=== PATIENT | female | born 1990 | race African-American/Black ===

== ENCOUNTER 2020-08-02 10:51 | Outpatient (CLI) | payer BC, MEDICAID, SELFPAY ==
--- NOTE | ~2020-08-02 | MMUS_ITS ---
EXAMINATION: US breast LT limited, MM diagnostic quan LT w luis enrique HISTORY: Palpable left breast mass. Pain at site of previous surgery. TECHNIQUE: Additional 3-D tomosynthesis images of the left breast were performed and synthetic 2-D im ages were generated. CAD analysis was submitted and interpreted. High resolution Limited left breast/ axillary ultrasound was performed. COMPARISON: None BREAST PARENCHYMAL COMPOSITION: Breast composed of scattered areas of fibroglandular density. FINDINGS: MAMMOGRAPHIC FINDINGS: There are no suspicious masses, calcifications or architectural distortion in the left breast. There are enlarged left axillary lymph nodes with effacement of normal fatty hilum ULTRASOUND: Limited left breast/axillary ultrasound: At 4:00, 17 cm from the nipple, there is a complex area of p redominantly hypoechoic soft tissue with heterogeneous internal echotexture. There is enhanced throug h transmission. In the left axilla there are multiple enlarged lymph nodes with effacement of the nor mal fatty hilum. The largest abnormal-appearing lymph node measures 2.4 cm. IMPRESSION: 1. Complex hypoechoic soft tissue of the left breast at 4:00, 17 cm from the nipple. This is most lik arin infectious/inflammatory given the history of recent surgery. Multiple enlarged abnormal-appearing left axillary lymph nodes are present as well. 2. Ultrasound-guided aspiration/biopsy recommended. Alternatively, if the patient's symptoms are cons istent with infection, consider conservative therapy with antibiotics with follow-up ultrasound in 4- 6 weeks to assess for improvement. BI-RADS category 4, suspicious findings. Reviewed, dictated and finalized at location A. GER DIGITAL IMPRESSION: 1. Complex hypoechoic soft tissue of the left breast at 4:00, 17 cm from the ni pple. This is most likely infectious/inflammatory given the history of recent s urgery. Multiple enlarged abnormal-appearing left axillary lymph nodes are pres ent as well. 2. Ultrasound-guided aspiration/biopsy recommended. Alternatively, if the patie nt's symptoms are consistent with infection, consider conservative therapy with antibiotics with follow-up ultrasound in 4-6 weeks to assess for improvement. BI-RADS category 4, suspicious findings.
== END 2020-08-02 10:52 | disposition home or self-care (01) ==
LOC: ANHIMG 11:13
PROVIDERS: PCP Emergency Medicine; Visit Provider Advanced Practice Midwife
DX: N64.4 Mastodynia (principal); N63.20 Unspecified lump in the left breast, unspecified quadrant; R92.8 Other abnormal and inconclusive findings on diagnostic imaging of breast
CPT/HCPCS: 76642; 77061; 77065; G0279

== ENCOUNTER 2021-02-01 13:46 | Emergency (ER) | payer BC, MEDICAID, SELFPAY ==
--- NOTE | ~2021-02-01 | XR_ITS ---
EXAMINATION: XR chest 1V portable EXAM DATE: 02/01/2021 16:01 INDICATION: Cough. TECHNIQUE: Frontal and lateral projections of the chest obtained and reviewed. Comparison is made to prior examination from 06/06/2016. FINDINGS: Suspect some ill-defined bilateral airspace disease, could be acute infectious process. No pneumothorax or pleural effusion. Cardiomediastinal silhouette is normal. There are no osseous abnorm alities identified. IMPRESSION: Suspect developing bilateral acute infectious process. Reviewed, dictated and finalized at location B.
[2021-02-01 13:51] VITALS: BP 137/90; PULSE 115; RESP 16; TEMP 37.6; O2SAT 98
--- NOTE | 2021-02-01 14:41 | ED.GENADULT ---
HPI - General Adult General Chief complaint: Nausea/Vomiting/Diarrhea Stated complaint: Vomiting x4 Days Time Seen by Provider: 02/01/21 14:12 Source: RN notes reviewed History of Present Illness HPI narrative: Patient presents emergency department from home for nausea vomiting diarrhea. Patient states that nausea began approximately 1 week ago but is worse over the past 4 days she notes numerous episodes of nausea vomiting unable to keep anything down as well as diarrhea states that with that she has intermittent abdominal cramping but denies any abdominal pain at this time. She denies any fevers or chills chest pain shortness of breath cough or any other symptoms she states her mother did test positive for Covid 2 weeks ago and she is unvaccinated she states she did have a Covid test proximally 2 weeks ago that was negative states she not taking medication at home for the symptoms Related Data Allergies Allergy/AdvReac Type Severity Reaction Status Date / Time No Known Allergies Allergy Unknown Unverified 02/01/21 13:53 Review of Systems Review of Systems: Gen.: Denies fevers or chills ENT: Denies congestion Respiratory: Denies shortness of breath or cough CV: Denies chest pain or palpitations GI: See HPI denies burning, urgency, frequency or hematuria Musculoskeletal: Denies back pain or muscle pain Neuro: Denies numbness, tingling, weakness or focal weakness Skin: Denies rash Except as documented, all other systems reviewed and negative PMFSH Past Medical History Medical History (Updated 02/01/21 @ 16:50 by Wood Parker DO) Patient denies significant medical history Social History Social History (Updated 02/01/21 @ 14:42 by Wood Parker DO) Smoking status: Never smoker Exam Narrative: APPEARANCE: No acute distress, nontoxic, resting in bed EYES: EOMI HEENT: Normocephalic, atraumatic, RESPIRATORY: No respiratory distress Clear to auscultation bilaterally with no rhonchi wheezing or rales. CARDIOVASCULAR: Regular rate and rhythm without murmurs rubs or gallops. ABDOMINAL: Soft, nontender, nondistended, no rebound or guarding MUSCULOSKELETAl: Moves all extremities. No clubbing, cyanosis or edema. NEURO: Awake and alert. Following commands, speech normal, no focal deficits SKIN:: Warm, dry. No rashes lesions or abrasions PSYCHIATRIC: Normal affect/mood, Course Course Emergency Course: With patient's history of mother testing positive for Covid I did obtain a chest x-ray that shows questionable developing infiltrative process with concerns of Covid I will swab the patient and started on doxycycline Patient able to drink in ED with no emesis Repeat abdominal exam shows abdomen remains soft and nontender discussed with patient results of workup and diagnosis. Discussed need for follow-up with primary care, proper use of medication, and reasons to return to the emergency department. Patient understands and agrees to current treatment plan Vital Signs Vital signs: Vital Signs Temperature 99.7 F H 02/01/21 13:51 Pulse Rate 115 H 02/01/21 13:51 Respiratory Rate 16 02/01/21 13:51 Blood Pressure 137/90 02/01/21 13:51 Pulse Oximetry 98 02/01/21 13:51 Temperature 99.7 F H 02/01/21 13:51 Pulse Rate 99 02/01/21 15:30 Respiratory Rate 20 02/01/21 15:30 Blood Pressure 122/83 02/01/21 15:30 Pulse Oximetry 99 02/01/21 15:30 Medical Decision Making Vital Signs Vital Signs: Vital Signs Temperature 99.7 F H 02/01/21 13:51 Pulse Rate 115 H 02/01/21 13:51 Respiratory Rate 16 02/01/21 13:51 Blood Pressure 137/90 02/01/21 13:51 Pulse Oximetry 98 02/01/21 13:51 Temperature 99.7 F H 02/01/21 13:51 Pulse Rate 99 02/01/21 15:30 Respiratory Rate 20 02/01/21 15:30 Blood Pressure 122/83 02/01/21 15:30 Pulse Oximetry 99 02/01/21 15:30 Lab Data Result diagrams: 02/01/21 14:53 02/01/21 14:53 Labs: Lab Results 0
[2021-02-01] MEDS: SODIUM CHLORIDE 0.9% IV 1,000 ML 999 ML IV CONT ×2 (15:06→15:48)
[2021-02-01 15:10] LABS: Basophils Percent Auto 0.2 % (0.2-1.2); Hemoglobin 10.1 g/dL (12.0-15.0); Immature Granulocyte Absolute 0.01 K/mm3 (0.00-0.031); Immature Granulocyte Percent A 0.2 % (0-0.5); Lymphocytes Absolute Auto 1.34 K/mm3 (0.9-3.2); Lymphocytes Percent Auto 28.7 % (18.3-44.2); Mean Corpuscular HGB Conc 30.6 g/dl (32-36); Mean Corpuscular Hemoglobin 23.9 pg (26-34); Mean Platelet Volume 10.8 fl (7.4-10.4); Monocytes Absolute Auto 0.3 K/mm3 (0.1-0.6); Monocytes Percent Auto 5.4 % (2.6-8.5); Neutrophils Absolute Auto 3.1 K/mm3 (1.3-6.7); Neutrophils Percent Auto 65.5 % (45.5-73.1); Platelet Count Result 330 k/mm3 (150-375); Red Blood Count 4.23 M/mm3 (4.2-5.4); Red Cell Distribution Width 13.6 % (11.5-14.5); White Blood Count 4.7 K/mm3 (4.5-10.0)
[2021-02-01 15:21] LABS: Alanine Aminotransferase 47 U/L (4-35); Albumin Level 4.2 g/dL (3.5-5.1); Alkaline Phosphatase 84 U/L (38-126); Anion Gap 9 mmol/L (8-16); Aspartate Amino Transferase 52 U/L (14-36); Bilirubin,Total 0.3 mg/dL (0.2-1.3); Blood Urea Nitrogen 9 mg/dL (7-17); Calcium 8.7 mg/dL (8.4-10.2); Carbon Dioxide 25 mmol/L (22-30); Chloride 102 mmol/L (98-107); Estimated CRCL calculation 73 ml/min; Estimated Glomerular Filt Rate > 60; Glucose 103 mg/dL (65-110); Lipase 141 U/L (23-300); Potassium 3.9 mmol/L (3.4-5.0); Sodium 136 mmol/L (137-145)
[2021-02-01 15:26] LABS: Atypical Lymphocytes Present; Ovalocytes 1+ (NORMAL); Platelet Estimate Adequate (Adequate)
[2021-02-01 15:30] VITALS: BP 122/83; PULSE 99; RESP 20; O2SAT 99
[2021-02-01] MEDS: ONDANSETRON INJ 4 MG/2 ML VIAL IV PUSH (15:35)
[2021-02-01 15:41] LABS: Add Urine Microscopic? YES; Appearance Urine Clear (Clear); Bilirubin Urine Negative (Negative); Blood Urine Negative (Negative); Color Urine Yellow (Yellow); Glucose Urine UA Negative (Negative); Ketones Urine Trace mg/dL (Negative); Leukocyte Esterase Ur Negative LEU/UL (Negative); Mucus Urine Rare /lpf; Nitrate Urine Negative (Negative); Protein Urine 2+ mg/dL (Negative); Specific Grav Ur 1.018 (1.001-1.035); Squamous Epithelial Cell Urine Few /hpf (Few); Urobilinogen Urine Negative mg/dL (<2.0); WBC Urine 0-3 /hpf
--- NOTE | 2021-02-01 16:00 | PC.NURSE ---
PO CHALLENGE- PT TOLERATED WELL. DENIES NAUSEA AT THIS TIME.
[2021-02-01 16:49] VITALS: BP 134/98; PULSE 100; RESP 20; TEMP 37.3; O2SAT 98
[2021-02-01] MEDS: DOXYCYCLINE HYCLATE 100 MG TABLET PO (17:00)
[2021-02-02 21:00] LABS: SARS-CoV-2 RNA PCR Positive
== END 2021-02-01 17:04 | disposition home or self-care (01) ==
PROVIDERS: Emergency Provider Emergency Medicine; PCP Emergency Medicine
DX: U07.1 COVID-19 (principal); R11.2 Nausea with vomiting, unspecified; R19.7 Diarrhea, unspecified; R91.8 Other nonspecific abnormal finding of lung field
CPT/HCPCS: 36415; 71045; 80053; 81001; 81025; 83690; 85025; 96361; 96365; 96375; 99284; A9270; C9803; J0131; J2405; J7030; U0003; U0005

== ENCOUNTER 2021-02-04 14:56 | Inpatient (IN) | payer BC, MEDICAID, SELFPAY ==
[2021-02-04] VITALS (20 sets, daily range): BP systolic 106–137; BP diastolic 70–91; PULSE 96–124; RESP 20–60; TEMP 37.2–39.1; O2SAT 92–100; BMI 35.2
--- NOTE | ~2021-02-04 | CT_ITS ---
EXAMINATION: CTA chest PE protocol DATE: 02/04/2021 17:37 INDICATION: Cough. Tachypnea. TECHNIQUE: Computed tomography angiography (CTA) of the chest was performed with 100 mL Omnipaque-350 intravenous contrast timed to evaluate the pulmonary arteries. Coronal maximum intensity projection 3D-reconstructions were created by the technologist. Automated exposure control and iterative reconst ruction technique were employed. The dose-length product was 584.69 mGy-cm. COMPARISON: Chest CT 06/06/2016 FINDINGS: There are patchy airspace and groundglass opacities with air bronchograms involving all lob es. No pleural effusion. The heart size is normal. No pericardial effusion. There is no pulmonary emb olus. There is diffuse hepatic steatosis. There is thoracic dextroscoliosis. IMPRESSION: 1. No pulmonary embolus. Sensitivity is mildly decreased by motion artifact. 2. Diffuse lung disease, consistent with COVID-19 pneumonia. Reviewed, dictated and finalized at location A.
--- NOTE | ~2021-02-04 | XR_ITS ---
EXAMINATION: XR chest 2V DATE: 02/04/2021 15:27 INDICATION: Shortness of breath. TECHNIQUE: Frontal and lateral views of the chest were obtained. COMPARISON: Chest single view 02/01/2021, chest CT 06/06/2016 FINDINGS: There are airspace opacities in the mid and lower lung zones. No pleural effusion or pneumo thorax. The heart size is normal. IMPRESSION: 1. Airspace opacities in the mid and lower lung zones with worsening in the lower lung zones, consist ent with COVID-19 pneumonia. Reviewed, dictated and finalized at location A. IMPRESSION: 1. Airspace opacities in the mid and lower lung zones with worsening in the low er lung zones, consistent with COVID-19 pneumonia.
--- NOTE | ~2021-02-04 | XR_ITS ---
EXAMINATION: XR chest 1V portable DATE: 02/08/2021 06:05 INDICATION: Dyspnea. TECHNIQUE: A single frontal view of the chest was obtained. COMPARISON: Chest 2 views 02/04/2021, chest CT 02/04/2021 FINDINGS: The patient is rotated to her left. There are patchy airspace opacities throughout the lung s bilaterally. No pleural effusion or pneumothorax. The heart size is normal. IMPRESSION: 1. Worsened diffuse lung disease, consistent with COVID-19 pneumonia. Reviewed, dictated and finalized at location A.
--- NOTE | 2021-02-04 15:46 | ECG_ITS ---
Measurements Intervals Whitney Rate: 112 P: 75 NE: 129 QRS: 0 QRSD: 96 T: 94 QT: 330 QTc: 452 Interpretive Statements SINUS TACHYCARDIA EARLY PRECORDIAL R/S TRANSITION VOLTAGE CRITERIA FOR LVH BORDERLINE T WAVE ABNORMALITY- ANTEROLAT/HIGH LAT LEADS BASELINE WANDER- V1, V5 ABNORMAL ECG Electronically Signed On 02-04-2021 17:18:05 CDT by Martin Dean D.O.
--- NOTE | 2021-02-04 15:52 | ED.URI ---
HPI - URI/Sore Throat General Chief Complaint: Upper Respiratory Infection Stated Complaint: DEHYDRATION Time Seen by Provider: 02/04/21 15:27 Source: patient and RN notes reviewed Mode of arrival: ambulatory Limitations: no limitations History of Present Illness HPI Narrative: This is a 30 year old female COVID + who presents for evaluation of shortness of breath. Patient developed symptoms of covid 10 days ago and she tested positive 3 days ago. She was evaluated in ER 3 days ago and she was discharged with doxycycline for antibiotics. She reports nausea, vomiting and diarrhea starting 2 days ago. She reports shortness of breath starting 2 days ago as well. She has been unable to keep anything and she feels sick. She is sure of fever or chills. She denies abdominal pain and chest pain. She was not vaccinated for COVID. Related Data Home Medications Medication Instructions Recorded Confirmed metformin 500 mg PO BID 02/04/21 02/04/21 Allergies Allergy/AdvReac Type Severity Reaction Status Date / Time No Known Allergies Allergy Unknown Verified 02/04/21 15:34 Review of Systems Review of Systems: All systems reviewed & are unremarkable except as noted in HPI and below PMFSH Past Medical History Medical History (Updated 02/05/21 @ 00:13 by Colleen Rowe MD) Polycystic ovarian syndrome Surgical History Surgical History (Updated 02/04/21 @ 22:18 by Ifrah Ibanez PA-C) History of bilateral breast reduction surgery (~12/2020) Family History Family History Mother Hypertension Grandparent Diabetes mellitus Social History Social History (Updated 02/04/21 @ 22:19 by Ifrah Ibanez PA-C) Social History: Surrogate decision maker: Vika Kamara, mother. Code status: Full code. Smoking status: Never smoker Alcohol intake: never Substance use: never Additional living arrangements comments: The patient lives in [place]. 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 Exam Const: General: alert and ill appearing Orientation/consciousness: patient oriented x3 Eyes: EOM: EOMs intact bilaterally Resp: Effort & Inspection: no retractions, tachypneic and no use of accessory muscles Auscultation: clear to auscultation bilaterally Cardio: Rate: tachycardic Rhythm: regular rhythm Heart sounds: no murmurs GI: GI Palp: Yes Soft to palpation, No Tenderness to palpation present (GI) and No Guarding due to palpation present (GI) Auscultation: normal bowel sounds Skin: General skin exam: normal color Rashes: no rashes Neuro: General: patient oriented x3, moves all extremities and CN's II-XI intact bilaterally Extrem: General: normal to inspection and no pedal edema Psych: Mental Status: mental status grossly normal Affect: normal affect Course Consultations Consultation #1: I discussed case with Ifrah Ibanez. She saw patient in ER. She accepts patient to medical floor. Patient will place found to have low PaO2 on ABG. Date: 02/04/21 Time: 17:45 Vital Signs Vital signs: Vital Signs Temperature 99.7 F H 02/04/21 15:05 Pulse Rate 124 H 02/04/21 15:05 Respiratory Rate 24 H 02/04/21 15:05 Blood Pressure 129/81 02/04/21 15:05 Pulse Oximetry 100 02/04/21 15:05 Temperature 99.0 F 02/04/21 23:50 Pulse Rate 96 02/04/21 23:50 Respiratory Rate 20 02/04/21 23:50 Blood Pressure 116/79 02/04/21 23:50 Pulse Oximetry 99 02/04/21 23:50 MDM - URI/Sore Throat Lab Data Attestation: I reviewed the patient's lab results. Result diagrams: 02/04/21 15:52 02/04/21 15:52 Labs: Lab Results 02/04/21 02/04/21 02/04/21 Range/Units 15:52 15:52 15:52 WBC 6.9 (4.5-10.0) K/mm3 RBC 4.30 (4.2-5.4) M/mm3 Hgb 10.1 L (12.0-15.0) g/dL Hct 33.2 L (37.0-47.0) % MCV 77.2 L (80-1
[2021-02-04] MEDS: SODIUM CHLORIDE 0.9% IV 1,000 ML 999 ML IV CONT (15:57)
[2021-02-04] MEDS: ONDANSETRON INJ 4 MG/2 ML VIAL IV PUSH (15:57)
[2021-02-04 16:10] LABS: Basophils Percent Auto 0.1 % (0.2-1.2); Hematocrit 33.2 % (37.0-47.0); Hemoglobin 10.1 g/dL (12.0-15.0); Immature Granulocyte Absolute 0.03 K/mm3 (0.00-0.031); Immature Granulocyte Percent A 0.4 % (0-0.5); Lymphocytes Absolute Auto 1.35 K/mm3 (0.9-3.2); Lymphocytes Percent Auto 19.5 % (18.3-44.2); Mean Corpuscular HGB Conc 30.4 g/dl (32-36); Mean Corpuscular Hemoglobin 23.5 pg (26-34); Mean Corpuscular Volume 77.2 fl (80-100); Mean Platelet Volume 10.4 fl (7.4-10.4); Monocytes Absolute Auto 0.3 K/mm3 (0.1-0.6); Monocytes Percent Auto 3.6 % (2.6-8.5); Neutrophils Absolute Auto 5.3 K/mm3 (1.3-6.7); Neutrophils Percent Auto 76.4 % (45.5-73.1); Platelet Count Result 430 k/mm3 (150-375); Red Cell Distribution Width 14.2 % (11.5-14.5); White Blood Count 6.9 K/mm3 (4.5-10.0)
[2021-02-04 16:12] LABS: Alveolar/Arterial O2 Gradient 57.7 mmHg; Base Excess ABG -1.6 mEq/l (+/-2.0); Carboxyhemoglobin 0.2 % THb (0-2.0); Device ROOM AIR; Fractional Inspired Oxygen 21 %; HCO3 ABG 21.4 mEq/l (22.0-26.0); Methemoglobin ABG 0.3 %THb (0-1.5); Modified Allen's Test Pass; Oxygen Saturation ABG 91.3 % (95.0-100.0); Oxyhemoglobin 88.7 % THb (90.0-100.0); PCO2 ABG 30.1 mmHg (35.0-45.0); PO2 FiO2 Ratio Arterial Blood 2.67 %; Reduced Hemoglobin 10.8 %THb (0-5.0); Site Drawn RIGHT RADIAL; Total Hemoglobin 10.4 g/dL (12.0-18.0); pH ABG 7.469 (7.350-7.450)
[2021-02-04] MEDS: ALBUTEROL SULFATE (*SP) INHALER 1 PUFF (16:13)
[2021-02-04] MEDS: ALBUTEROL SULFATE (*SP) AEROSOL 1 PUFF 4 PUFF INHALATION (16:13)
[2021-02-04 16:21] LABS: INR 0.9; Prothrombin Time 12.5 Seconds (11.1-14.7)
[2021-02-04 16:22] LABS: Partial Thromboplastin Time 35.4 SECONDS (22.3-36.8)
[2021-02-04 16:24] LABS: D Dimer 1.53 ug/mL (<0.48)
[2021-02-04 16:26] LABS: Lactic Acid Reflex 1.2 mmol/L (0.7-2.1)
[2021-02-04 16:27] LABS: Alanine Aminotransferase 29 U/L (4-35); Albumin Level 4.2 g/dL (3.5-5.1); Alkaline Phosphatase 70 U/L (38-126); Anion Gap 8 mmol/L (8-16); Aspartate Amino Transferase 45 U/L (14-36); Bilirubin,Total 0.4 mg/dL (0.2-1.3); Blood Urea Nitrogen 8 mg/dL (7-17); CRP 6.1 mg/dL (<1.0); Calcium 8.8 mg/dL (8.4-10.2); Carbon Dioxide 24 mmol/L (22-30); Chloride 102 mmol/L (98-107); Estimated CRCL calculation 73 ml/min; Estimated Glomerular Filt Rate > 60; Glucose 119 mg/dL (65-110); Potassium 3.7 mmol/L (3.4-5.0); Sodium 134 mmol/L (137-145)
[2021-02-04 16:47] LABS: Hypochromasia 2+ (NORMAL); Platelet Estimate Increased (Adequate)
[2021-02-04] MEDS: LACTATED RINGERS 1,000 ML 999 ML IV CONT (17:11)
--- NOTE | 2021-02-04 17:14 | PC.NURSE ---
Placed on at 4lnc by resp therapy.
[2021-02-04] MEDS: DEXAMETHASONE 2 MG TABLET 6 MG PO (18:23)
--- NOTE | 2021-02-04 19:00 | PM.IMHP ---
H&P: HPI History of Present Illness Date/Time: 02/04/21 19:00 Chief Complaint: Multiple complaints, COVID positive. Narrative: This is a very pleasant 30-year-old female with PCOS who presented to the emergency department earlier today via private vehicle from home for evaluation of multiple complaints;, the patient is COVID positive. She developed symptoms of COVID about 10 days ago and tested positive for the same 3 days ago with symptoms to include fever, body aches, nausea, vomiting, and diarrhea. She has not been able to keep down any food or much liquid for several days and feels dehydrated. She has also felt increasingly short of breath for the last couple of days with occasional cough though has not been significantly productive. Chest CTA today showed no evidence of pulmonary embolism but did show diffuse lung disease consistent with COVID pneumonia. She was also found to have an increase in creatinine and she is being admitted in this setting. She did not receive a COVID vaccination and was exposed to a family member who was positive for COVID a couple of weeks ago. She denies syncope, chest pain, and pleuritic pain. Review of Systems Review of Systems: Twelve systems were reviewed with pertinent positives and negatives as per HPI. Except as documented, all other systems were reviewed and are negative. [facility] Past Medical History Medical History (Updated 02/04/21 @ 22:22 by Ifrah Ibanez PA-C) Polycystic ovarian syndrome Surgical History Surgical History (Updated 02/04/21 @ 22:18 by Ifrah Ibanez PA-C) History of bilateral breast reduction surgery (~12/2020) Family History Family History Mother Hypertension Grandparent Diabetes mellitus Social History Social History (Updated 02/04/21 @ 22:19 by Ifrah Ibanez PA-C) Social History: Surrogate decision maker: Vika Kamara, mother. Code status: Full code. Smoking status: Never smoker Alcohol intake: never Substance use: never Additional living arrangements comments: The patient lives in [place]. 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 Meds Home Medications and Allergies Home Medications Medication Instructions Recorded Confirmed Type famotidine [Pepcid] 20 mg PO DAILY #14 tablet 02/01/21 02/04/21 Rx ondansetron 4 mg PO Q6H PRN #10 tablet 02/01/21 02/04/21 Rx metformin 500 mg PO BID 02/04/21 02/04/21 History Allergies Allergy/AdvReac Type Severity Reaction Status Date / Time No Known Allergies Allergy Unknown Verified 02/04/21 15:34 Vital Signs Vital Signs - 24 hr 02/04/21 15:05 02/04/21 15:29 02/04/21 15:34 Temperature 99.7 F H Pulse Rate 124 H 113 H 118 H Respiratory Rate 24 H 40 H 27 H Blood Pressure 129/81 106/70 Pulse Oximetry 100 100 02/04/21 15:45 02/04/21 15:46 02/04/21 16:00 Temperature Pulse Rate Respiratory Rate Blood Pressure 120/84 Pulse Oximetry 97 96 98 02/04/21 16:31 02/04/21 16:32 02/04/21 17:46 Temperature Pulse Rate 115 H Respiratory Rate 35 H Blood Pressure 133/91 H Pulse Oximetry 100 97 02/04/21 18:00 02/04/21 18:14 02/04/21 18:15 Temperature Pulse Rate 115 H 118 H 116 H Respiratory Rate 43 H 54 H 43 H Blood Pressure 130/88 Pulse Oximetry 100 97 96 02/04/21 18:16 02/04/21 18:50 02/04/21 19:00 Temperature 102.3 F H Pulse Rate 116 H 116 H 112 H Respiratory Rate 50 H 32 H 60 H Blood Pressure 122/91 H 125/85 137/91 H Pulse Oximetry 97 96 92 02/04/21 19:31 02/04/21 20:00 02/04/21 21:06 Temperature 102.3 F H 101.5 F H 101.5 F H Pulse Rate 112 H 115 H Respiratory Rate 60 H 20 Blood Pressure 137/91 H 134/87 Pulse Oximetry 92 99 Exam Narrative: General: Well-developed, well nourished ill-appearing female in bed. Weight: 93.1 kg. BMI: 35.2. HEENT: PERRL, EOMI. Sclerae anicteric. Tacky mucous membr
[2021-02-04] MEDS: SODIUM CHLORIDE 0.9% IV 1,000 ML 125 ML IV CONT (19:10)
--- NOTE | 2021-02-04 19:31 | PC.NURSE ---
This patient, Yadira Hahn, was admitted to 3 Med Surg Room 303-01 @1904. Patient/family oriented to hospital policies and general routines including ID bracelet, bed and alarms, visiting hours, pain management, procedures, bathroom and other care routines, personal items, smoking policy, room service/diet, and visiting hours. Information on how to activate the Rapid Response Team has been discussed. Patient/Family are encouraged to report perceived risks to care and to ask questions if they do not understand what they are told or what they should do.
[2021-02-04] MEDS: ALPRAZolam (*CRX) 0.125 MG TABLET PO (23:07)
[2021-02-04] MEDS: FAMOTIDINE 20 MG/2 ML VIAL IV PUSH (23:08)
[2021-02-05] VITALS (14 sets, daily range): BP systolic 125–153; BP diastolic 78–90; PULSE 76–119; RESP 18–24; TEMP 36.4–37.9; O2SAT 91–100
[2021-02-05] MEDS: SODIUM CHLORIDE 0.9% IV 1,000 ML 125 ML IV CONT (05:16)
[2021-02-05] MEDS: SODIUM CHLORIDE 0.9% IV 1,000 ML 100 ML IV CONT (05:17)
[2021-02-05 06:52] LABS: Basophils Percent Auto 0.2 % (0.2-1.2); Hematocrit 33.6 % (37.0-47.0); Hemoglobin 9.9 g/dL (12.0-15.0); Immature Granulocyte Absolute 0.06 K/mm3 (0.00-0.031); Immature Granulocyte Percent A 1.2 % (0-0.5); Lymphocytes Absolute Auto 0.94 K/mm3 (0.9-3.2); Lymphocytes Percent Auto 18.2 % (18.3-44.2); Mean Corpuscular HGB Conc 29.5 g/dl (32-36); Mean Corpuscular Hemoglobin 23.1 pg (26-34); Mean Corpuscular Volume 78.5 fl (80-100); Mean Platelet Volume 10.1 fl (7.4-10.4); Monocytes Absolute Auto 0.2 K/mm3 (0.1-0.6); Monocytes Percent Auto 3.9 % (2.6-8.5); Neutrophils Percent Auto 76.5 % (45.5-73.1); Platelet Count Result 410 k/mm3 (150-375); Red Blood Count 4.28 M/mm3 (4.2-5.4); Red Cell Distribution Width 14.1 % (11.5-14.5); White Blood Count 5.2 K/mm3 (4.5-10.0)
[2021-02-05 07:08] LABS: Alanine Aminotransferase 27 U/L (4-35); Albumin Level 3.9 g/dL (3.5-5.1); Alkaline Phosphatase 60 U/L (38-126); Anion Gap 11 mmol/L (8-16); Aspartate Amino Transferase 40 U/L (14-36); Bilirubin,Total 0.4 mg/dL (0.2-1.3); Blood Urea Nitrogen 9 mg/dL (7-17); Calcium 8.8 mg/dL (8.4-10.2); Carbon Dioxide 22 mmol/L (22-30); Chloride 107 mmol/L (98-107); Estimated CRCL calculation 97 ml/min; Estimated Glomerular Filt Rate > 60; Glucose 136 mg/dL (65-110); Potassium 4.5 mmol/L (3.4-5.0); Sodium 140 mmol/L (137-145)
[2021-02-05 07:10] LABS: Lactate Dehydrogenase 992 U/L (313-618); Magnesium 2.2 mg/dL (1.6-2.3)
[2021-02-05 07:31] LABS: Platelet Estimate Adequate (Adequate)
[2021-02-05 07:33] LABS: Microcytosis 1+ (NORMAL)
[2021-02-05] MEDS: guaiFENesin 12 HR 600 MG TABCR PO ×2 (10:12→20:51)
[2021-02-05] MEDS: ENOXAPARIN 40 MG/0.4 ML SYRINGE SUB-Q (10:12)
[2021-02-05] MEDS: FAMOTIDINE 20 MG/2 ML VIAL IV PUSH ×2 (10:12→20:51)
[2021-02-05] MEDS: ALBUTEROL SULFATE (*SP) INHALER 2 PUFF INHALATION ×3 (12:22→20:03)
--- NOTE | 2021-02-05 15:26 | PM.IMPN ---
Progress Note: A&P Assessment and Plan (1) Hypoxemia: Code(s): R09.02 - Hypoxemia Status: Acute Assessment and Plan: ABG PO2 was 56 with O2 saturation of 91.3% an oxyhemoglobin of 88.7%. Currently on 4 L nasal cannula wean to maintain a saturation greater than [address] therapy CT showed no evidence of a PE Chest x-ray shows mild airspace opacities consistent with COVID (2) Pneumonia due to COVID-19 virus: Code(s): U07.1 - COVID-19; J12.82 - Pneumonia due to coronavirus disease 2019 Status: Acute Assessment and Plan: dexamethasone and remdesivir (day 2). Encourage incentive spirometry. Franklyn and Mucinex to help mobilize secretions. albuterol MDI. Encourage self proning as possible. Trend inflammatory markers. Current are LDH 92, CRP 6.0, D-dimer is 1.53, ferritin 93.70 (3) Dehydration: Code(s): E86.0 - Dehydration Status: Acute Assessment and Plan: Encourage p.o. intake. (4) Acute kidney injury: Code(s): N17.9 - Acute kidney failure, unspecified Status: Acute Assessment and Plan: BUN and creatinine a bit elevated on admission 8/1.10 Better after overnight hydration BUN creatinine today 9/0.8 Trend labs Labs in a.m. Subjective Date/time seen: 02/05/21 13:45 Interval history: Patient is a 30-year-old female who is here for COVID-19. Patient stated that she feels a little better however she still really short of breath with activity. She stated that she is unable to go to the bathroom without being short of breath. She also has had intermittent fevers and chills this afternoon. She also states that she has a cough that is producing a white sputum. She also complained of continuous diarrhea. She does have a taste and smell with good appetite. She denies nausea vomiting body aches headache fevers sweats and chills. Review of Systems Review of Systems: All systems reviewed & are unremarkable except as noted in HPI and below Exam Const: General: cooperative, healthy appearing, comfortable, no acute distress, well developed, alert, awake and Physically active Nutritional Appearance: well nourished, obese and overweight Orientation/consciousness: oriented to person, oriented to place, oriented to time and patient oriented x3 Limitations: no limitations HENMT: Head: normal to inspection Ears: hearing grossly normal bilaterally General nose exam: Normal external nose present Mouth: Yes Normal oral and palatal mucosa present, Yes lip normal and Yes tongue normal Teeth and gingiva: abnormal tooth and associated gingiva and poor dentition Eyes: General: appearance normal, both eyes and all related structures Neck: Neck: normal visual inspection, full ROM, trachea midline and supple Chest: Chest palpation & inspection: normal inspection of the chest Resp: Effort & Inspection: normal respiratory effort and able to speak in complete sentences Auscultation: clear to auscultation bilaterally Cardio: Jugular venous distension: no JVD Rate: regular rate Rhythm: regular rhythm Heart sounds: S1 normal heart sound present and S2 normal heart sound present Peripheral pulses: Peripheral pulses 2+ throughout GI: Inspection: normal to inspection GI Palp: Yes Soft to palpation and No Tenderness to palpation present (GI) Auscultation: normal bowel sounds Skin: General skin exam: normal color and no rashes or lesions noted Lesions: no lesions Rashes: no rashes Trauma: no lacerations or abrasions Wounds: no wounds Hair: normal Nails: normal Neuro: General: oriented to person, oriented to place, oriented to time, patient oriented x3, moves all extremities and Normal light touch and pain sensation Cranial nerves: Yes CN's II-XII intact bilaterally, Yes Equal, round and reactive pupils present, Yes Bilaterally intact EOM present, Yes Midline tongue present and Yes Normal hearing present Cognition (Neuro): n
[2021-02-05 16:27] LABS: Prothrombin Time 13.2 Seconds (11.1-14.7)
[2021-02-05] MEDS: REMDESIVIR 200 MG/NS 250 ML 200 MG/250 ML BAG 250 MG IVPB (16:31)
[2021-02-05 17:35] LABS: Alanine Aminotransferase 22 U/L (4-35); Estimated CRCL calculation 110 ml/min; Estimated Glomerular Filt Rate > 60
[2021-02-05] MEDS: ACETAMINOPHEN 325 MG TABLET 650 MG PO (21:00)
[2021-02-06] VITALS (9 sets, daily range): BP systolic 120–148; BP diastolic 84–98; PULSE 84–105; RESP 18–43; TEMP 36.7–37.8; O2SAT 92–98
[2021-02-06] MEDS: ALPRAZolam (*CRX) 0.125 MG TABLET PO ×2 (01:24→20:39)
[2021-02-06 06:56] LABS: Basophils Percent Auto 0.2 % (0.2-1.2); Hematocrit 30.3 % (37.0-47.0); Hemoglobin 9.2 g/dL (12.0-15.0); Lymphocytes Absolute Auto 1.32 K/mm3 (0.9-3.2); Lymphocytes Percent Auto 13.3 % (18.3-44.2); Mean Corpuscular HGB Conc 30.4 g/dl (32-36); Mean Corpuscular Hemoglobin 23.8 pg (26-34); Mean Corpuscular Volume 78.3 fl (80-100); Mean Platelet Volume 10.7 fl (7.4-10.4); Monocytes Absolute Auto 0.4 K/mm3 (0.1-0.6); Monocytes Percent Auto 3.5 % (2.6-8.5); Neutrophils Absolute Auto 8.1 K/mm3 (1.3-6.7); Platelet Count Result 482 k/mm3 (150-375); Red Blood Count 3.87 M/mm3 (4.2-5.4); Red Cell Distribution Width 14.3 % (11.5-14.5); White Blood Count 9.9 K/mm3 (4.5-10.0)
[2021-02-06 07:06] LABS: Prothrombin Time 13.2 Seconds (11.1-14.7)
[2021-02-06] MEDS: ALBUTEROL SULFATE (*SP) INHALER 2 PUFF INHALATION ×4 (07:42→19:40)
[2021-02-06] MEDS: FAMOTIDINE 20 MG/2 ML VIAL IV PUSH ×2 (09:35→20:39)
[2021-02-06] MEDS: ENOXAPARIN 40 MG/0.4 ML SYRINGE SUB-Q (09:35)
[2021-02-06] MEDS: guaiFENesin 12 HR 600 MG TABCR PO ×2 (09:36→20:39)
[2021-02-06 12:32] LABS: Alanine Aminotransferase 23 U/L (4-35); Albumin Level 3.9 g/dL (3.5-5.1); Alkaline Phosphatase 55 U/L (38-126); Anion Gap 10 mmol/L (8-16); Aspartate Amino Transferase 34 U/L (14-36); Bilirubin,Total 0.4 mg/dL (0.2-1.3); Blood Urea Nitrogen 11 mg/dL (7-17); Calcium 8.9 mg/dL (8.4-10.2); Carbon Dioxide 23 mmol/L (22-30); Chloride 108 mmol/L (98-107); Estimated CRCL calculation 97 ml/min; Estimated Glomerular Filt Rate > 60; Glucose 113 mg/dL (65-110); Magnesium 2.3 mg/dL (1.6-2.3); Potassium 4.3 mmol/L (3.4-5.0); Sodium 141 mmol/L (137-145)
--- NOTE | 2021-02-06 15:38 | PM.IMPN ---
Progress Note: A&P Assessment and Plan (1) Hypoxemia: Code(s): R09.02 - Hypoxemia Status: Acute Assessment and Plan: ABG PO2 was 56 with O2 saturation of 91.3% an oxyhemoglobin of 88.7%. on admission Currently on 4 L nasal cannula wean to maintain a saturation greater than 90 IS [address] pep therapy CT showed no evidence of a PE Chest x-ray shows mild airspace opacities consistent with COVID (2) Pneumonia due to COVID-19 virus: Code(s): U07.1 - COVID-19; J12.82 - Pneumonia due to coronavirus disease 2018 Status: Acute Assessment and Plan: dexamethasone and remdesivir (day 3). Encourage incentive spirometry. Franklyn and Mucinex to help mobilize secretions. albuterol MDI. Encourage self proning as possible. Trend inflammatory markers. Current are LDH 92, CRP 6.0, D-dimer is 1.53, ferritin 93.70 (3) Dehydration: Code(s): E86.0 - Dehydration Status: Acute Assessment and Plan: Encourage p.o. intake. (4) Acute kidney injury: Code(s): N17.9 - Acute kidney failure, unspecified Status: Acute Assessment and Plan: BUN and creatinine a bit elevated on admission 8/1.10 Better after overnight hydration BUN creatinine today 11/0.8 Trend labs Labs in a.m. Subjective Date/time seen: 02/06/21 13:25 Interval history: patient is a 30-year-old female who is here for COVID-19. Patient stated that she is feeling better today however she is having issues with a cough she also stated that when she gets up to commode she becomes very short of breath and coughs a lot as well. She also stated that she has not been able to get much sleep due to the cough. She still on 4 L nasal cannula and satting about 91%. She was also concerned about a fever of 99.9 degrees. I did give her education about sleep in her stomach and her side however patient did state that she just had breast reduction surgery and has to make sure she has enough pillows. Patient denied chest pain, nausea, vomiting, constipation, abdominal pain, loss of taste or smell. Patient did state that she still having diarrhea and is short of breath. Review of Systems Review of Systems: All systems reviewed & are unremarkable except as noted in HPI and below Exam Const: General: cooperative, healthy appearing, comfortable, no acute distress, well developed, alert, awake and Physically active Nutritional Appearance: well nourished, obese and overweight Orientation/consciousness: oriented to person, oriented to place, oriented to time and patient oriented x3 Limitations: no limitations HENMT: Head: normal to inspection Ears: hearing grossly normal bilaterally General nose exam: Normal external nose present Mouth: Yes Normal oral and palatal mucosa present, Yes lip normal and Yes tongue normal Teeth and gingiva: abnormal tooth and associated gingiva and poor dentition Eyes: General: appearance normal, both eyes and all related structures Pupils: Equal, round and reactive pupils present Neck: Neck: normal visual inspection, full ROM, trachea midline and supple Chest: Chest palpation & inspection: normal inspection of the chest Resp: Effort & Inspection: normal respiratory effort and able to speak in complete sentences Auscultation: clear to auscultation bilaterally Cardio: Jugular venous distension: no JVD Rate: regular rate Rhythm: regular rhythm Heart sounds: S1 normal heart sound present and S2 normal heart sound present Peripheral pulses: Peripheral pulses 2+ throughout GI: Inspection: normal to inspection Auscultation: normal bowel sounds Skin: General skin exam: normal color and no rashes or lesions noted Lesions: no lesions Rashes: no rashes Trauma: no lacerations or abrasions Wounds: no wounds Hair: normal Nails: normal Neuro: General: oriented to person, oriented to place, oriented to time, patient oriented x3, moves all extremities and Normal light touc
[2021-02-06] MEDS: guaiFENesin/DEXTROMETHORPHAN 10 ML UDC 5 ML PO (20:38)
[2021-02-06] MEDS: REMDESIVIR 100 MG/NS 250 ML 100 MG/250 ML BAG 250 MG IVPB (20:39)
[2021-02-07] VITALS (7 sets, daily range): BP systolic 126–158; BP diastolic 90–99; PULSE 59–93; RESP 18–20; TEMP 36.7–36.9; O2SAT 93–99
[2021-02-07 06:55] LABS: Basophils Percent Auto 0.3 % (0.2-1.2); Hematocrit 27.9 % (37.0-47.0); Hemoglobin 8.5 g/dL (12.0-15.0); Immature Granulocyte Absolute 0.11 K/mm3 (0.00-0.031); Immature Granulocyte Percent A 1.4 % (0-0.5); Lymphocytes Absolute Auto 1.69 K/mm3 (0.9-3.2); Lymphocytes Percent Auto 21.7 % (18.3-44.2); Mean Corpuscular HGB Conc 30.5 g/dl (32-36); Mean Corpuscular Hemoglobin 23.9 pg (26-34); Mean Corpuscular Volume 78.4 fl (80-100); Mean Platelet Volume 10.3 fl (7.4-10.4); Monocytes Absolute Auto 0.5 K/mm3 (0.1-0.6); Monocytes Percent Auto 5.9 % (2.6-8.5); Neutrophils Absolute Auto 5.5 K/mm3 (1.3-6.7); Neutrophils Percent Auto 70.7 % (45.5-73.1); Nucleated Red Blood Cells Perc 0.3 % (0.0-0.2); Platelet Count Result 524 k/mm3 (150-375); Red Blood Count 3.56 M/mm3 (4.2-5.4); Red Cell Distribution Width 14.5 % (11.5-14.5); White Blood Count 7.8 K/mm3 (4.5-10.0)
[2021-02-07 07:06] LABS: INR 1.1; Prothrombin Time 14.4 Seconds (11.1-14.7)
[2021-02-07 07:08] LABS: D Dimer 1.01 ug/mL (<0.48)
[2021-02-07 07:23] LABS: Alanine Aminotransferase 20 U/L (4-35); Albumin Level 3.7 g/dL (3.5-5.1); Alkaline Phosphatase 54 U/L (38-126); Anion Gap 8 mmol/L (8-16); Aspartate Amino Transferase 33 U/L (14-36); Bilirubin,Total 0.3 mg/dL (0.2-1.3); Blood Urea Nitrogen 12 mg/dL (7-17); CRP 5.2 mg/dL (<1.0); Calcium 8.7 mg/dL (8.4-10.2); Carbon Dioxide 24 mmol/L (22-30); Chloride 109 mmol/L (98-107); Estimated CRCL calculation 98 ml/min; Estimated Glomerular Filt Rate > 60; Glucose 97 mg/dL (65-110); Lactate Dehydrogenase 941 U/L (313-618); Magnesium 2.4 mg/dL (1.6-2.3); Potassium 3.9 mmol/L (3.4-5.0); Sodium 141 mmol/L (137-145)
[2021-02-07] MEDS: FAMOTIDINE 20 MG/2 ML VIAL IV PUSH ×2 (09:07→20:30)
[2021-02-07] MEDS: ENOXAPARIN 40 MG/0.4 ML SYRINGE SUB-Q (09:07)
[2021-02-07] MEDS: guaiFENesin 12 HR 600 MG TABCR PO ×2 (09:08→20:30)
[2021-02-07 12:03] LABS: Platelet Estimate Increased (Adequate)
[2021-02-07 12:04] LABS: Hypochromasia 2+ (NORMAL)
[2021-02-07 12:05] LABS: Anisocytosis 1+ (NORMAL)
--- NOTE | 2021-02-07 12:37 | PCRCNOTE ---
Window of time for administration has passed. See next scheduled administration.
[2021-02-07] MEDS: ALBUTEROL SULFATE (*SP) INHALER 2 PUFF INHALATION ×3 (12:57→20:44)
--- NOTE | 2021-02-07 16:30 | PM.IMPN ---
Progress Note: A&P Assessment and Plan (1) Hypoxemia: Code(s): R09.02 - Hypoxemia Status: Acute Assessment and Plan: ABG PO2 was 56 with O2 saturation of 91.3% an oxyhemoglobin of 88.7%. on admission Currently on 8 L nasal cannula wean to maintain a saturation greater than 90 IS [address] pep therapy [address] showed no evidence of a PE Chest x-ray shows mild airspace opacities consistent with COVID will repeat chest xray tomorrow (2) Pneumonia due to COVID-19 virus: Code(s): U07.1 - COVID-19; J12.82 - Pneumonia due to coronavirus disease 2019 Status: Acute Assessment and Plan: dexamethasone change to b.i.d. and remdesivir (day 4). Encourage incentive spirometry. Franklyn and Mucinex to help mobilize secretions. albuterol MDI. Encourage self proning as possible, however, with recent breast surgery encourage as much side laying as possible Trend inflammatory markers. Current are LDH 941, CRP 5.2,, D-dimer is 1.01, ferritin 65.7 (02/07/21) (3) Dehydration: Code(s): E86.0 - Dehydration Status: Acute Assessment and Plan: Encourage p.o. intake. (4) Acute kidney injury: Code(s): N17.9 - Acute kidney failure, unspecified Status: Acute Assessment and Plan: BUN and creatinine a bit elevated on admission 8/1.10 Better after overnight hydration BUN creatinine today 12/0.80 Trend labs Labs in a.m. Subjective Date/time seen: 02/07/21 15:00 Interval history: Patient is a 30-year-old female here for COVID-19. She said that she is more the tired side today and she feels okay she is trying to adjust. She also stated that her oxygen saturation did drop with some movement and overnight while she was sleeping. She also seems to be very short of breath talking. She said her cough is getting a little better however she is still coughing up a lot of phlegm. She denies having fevers, chest pain, sweats, nausea, vomiting, diarrhea, constipation. Review of Systems Review of Systems: All systems reviewed & are unremarkable except as noted in HPI and below Exam Const: General: cooperative, healthy appearing, comfortable, no acute distress, well developed, alert, awake and Physically active Nutritional Appearance: well nourished, obese and overweight Orientation/consciousness: oriented to person, oriented to place, oriented to time and patient oriented x3 Limitations: no limitations HENMT: Head: normal to inspection Ears: hearing grossly normal bilaterally General nose exam: Normal external nose present Mouth: Yes Normal oral and palatal mucosa present, Yes lip normal and Yes tongue normal Teeth and gingiva: abnormal tooth and associated gingiva and poor dentition Eyes: General: appearance normal, both eyes and all related structures Pupils: Equal, round and reactive pupils present Neck: Neck: normal visual inspection, full ROM, trachea midline and supple Chest: Chest palpation & inspection: normal inspection of the chest Resp: Effort & Inspection: normal respiratory effort and able to speak in complete sentences Auscultation: clear to auscultation bilaterally Cardio: Jugular venous distension: no JVD Rate: regular rate Rhythm: regular rhythm Heart sounds: S1 normal heart sound present and S2 normal heart sound present Peripheral pulses: Peripheral pulses 2+ throughout GI: Inspection: normal to inspection Auscultation: normal bowel sounds Skin: General skin exam: normal color and no rashes or lesions noted Lesions: no lesions Rashes: no rashes Trauma: no lacerations or abrasions Wounds: no wounds Hair: normal Nails: normal Neuro: General: oriented to person, oriented to place, oriented to time, patient oriented x3, moves all extremities and Normal light touch and pain sensation Cranial nerves: Yes CN's II-XII intact bilaterally, Yes Equal, round and reactive pupils present, Yes Bilaterally intact EOM present, Yes Midline tong
[2021-02-07] MEDS: ALPRAZolam (*CRX) 0.125 MG TABLET PO (22:40)
[2021-02-07] MEDS: REMDESIVIR 100 MG/NS 250 ML 100 MG/250 ML BAG 250 MG IVPB (22:40)
[2021-02-08] VITALS (8 sets, daily range): BP systolic 137–154; BP diastolic 89–96; PULSE 60–80; RESP 14–20; TEMP 36.4–36.9; O2SAT 87–100
--- NOTE | 2021-02-08 00:08 | PC.NURSE ---
I spoke with Dr Arzola and made him aware of the patients elevation in blood pressure. would like us to continue to monitor at this time.
[2021-02-08 06:56] LABS: Basophils Percent Auto 0.1 % (0.2-1.2); Hematocrit 30.1 % (37.0-47.0); Hemoglobin 8.8 g/dL (12.0-15.0); Immature Granulocyte Absolute 0.26 K/mm3 (0.00-0.031); Lymphocytes Percent Auto 17.1 % (18.3-44.2); Mean Corpuscular HGB Conc 29.2 g/dl (32-36); Mean Corpuscular Hemoglobin 23.2 pg (26-34); Mean Corpuscular Volume 79.4 fl (80-100); Mean Platelet Volume 10.6 fl (7.4-10.4); Monocytes Absolute Auto 0.6 K/mm3 (0.1-0.6); Monocytes Percent Auto 7.1 % (2.6-8.5); Neutrophils Absolute Auto 6.4 K/mm3 (1.3-6.7); Neutrophils Percent Auto 72.7 % (45.5-73.1); Platelet Count Result 618 k/mm3 (150-375); Red Blood Count 3.79 M/mm3 (4.2-5.4); Red Cell Distribution Width 14.4 % (11.5-14.5); White Blood Count 8.8 K/mm3 (4.5-10.0)
[2021-02-08 07:25] LABS: Alanine Aminotransferase 21 U/L (4-35); Albumin Level 3.8 g/dL (3.5-5.1); Alkaline Phosphatase 55 U/L (38-126); Anion Gap 9 mmol/L (8-16); Aspartate Amino Transferase 30 U/L (14-36); Bilirubin,Total 0.3 mg/dL (0.2-1.3); Blood Urea Nitrogen 12 mg/dL (7-17); Carbon Dioxide 23 mmol/L (22-30); Chloride 108 mmol/L (98-107); Estimated CRCL calculation 111 ml/min; Estimated Glomerular Filt Rate > 60; Glucose 113 mg/dL (65-110); Magnesium 2.5 mg/dL (1.6-2.3); Potassium 4.3 mmol/L (3.4-5.0); Sodium 140 mmol/L (137-145)
--- NOTE | 2021-02-08 07:29 | PM.IMPN ---
Progress Note: A&P Assessment and Plan (1) Hypoxemia: Code(s): R09.02 - Hypoxemia Status: Acute Assessment and Plan: ABG PO2 was 56 with O2 saturation of 91.3% an oxyhemoglobin of 88.7%. on admission Currently on 8 L nasal cannula wean to maintain a saturation greater than 90 IS and pep therapy CT showed no evidence of a PE repeat chest xray showed worsening diffuse lung disease encourage movement add PT/OT since patient has been on bedrest for several weeks due to breast surgery and now covid Lasix 40mg IV once (2) Pneumonia due to COVID-19 virus: Code(s): U07.1 - COVID-19; J12.82 - Pneumonia due to coronavirus disease 2018 Status: Acute Assessment and Plan: dexamethasone change to b.i.d. and remdesivir (day 5), will continue for 5 more days consider adding baricitinib Encourage incentive spirometry. Franklyn and Mucinex to help mobilize secretions. Robitussin added for cough control albuterol MDI. Encourage self proning as possible, however, with recent breast surgery encourage as much side laying as possible Trend inflammatory markers. Current are LDH 941, CRP 5.2,, D-dimer is 1.01, ferritin 65.7 (02/07/21) (3) Dehydration: Code(s): E86.0 - Dehydration Status: Acute Assessment and Plan: Encourage p.o. intake. (4) Acute kidney injury: Code(s): N17.9 - Acute kidney failure, unspecified Status: Acute Assessment and Plan: BUN and creatinine a bit elevated on admission 8/1.10 Better after overnight hydration BUN creatinine today 12/.70 Trend labs Labs in a.m. (5) Hypertension: Code(s): I10 - Essential (primary) hypertension Status: Acute Assessment and Plan: 137/95 Trend blood pressure Consider starting medications Lasix 40mg iV once Subjective Date/time seen: 02/08/21 11:30 Interval history: Patient is a 30-year-old female here for COVID-19. She stated that she is feeling ok today, and that she feels better sitting up in the chair. She also stated that she still has the cough, but it is getting better as well. She did complain that she gets into big trouble when she goes to the bathroom. She stated that is when it is the hardest to breathe. She was able to be weaned to 2L on the high flow cannula. She was also concerned about her blood pressure. She stated that it was high last night, but it did come down with a manual recheck. Currently her blood pressure is 135/95. Could be related to fluid volume especially since she is labile with oxygen demand. She denies chest pain, nausea, vomiting, lightheadedness, weakness, fatigue, sweats, fevers, and chills. Review of Systems Review of Systems: All systems reviewed & are unremarkable except as noted in HPI and below Exam Const: General: cooperative, healthy appearing, comfortable, no acute distress, well developed, alert, awake and Physically active Nutritional Appearance: well nourished, obese and overweight Orientation/consciousness: oriented to person, oriented to place, oriented to time and patient oriented x3 Limitations: no limitations HENMT: Head: normal to inspection Ears: hearing grossly normal bilaterally General nose exam: Normal external nose present Mouth: Yes Normal oral and palatal mucosa present, Yes lip normal and Yes tongue normal Teeth and gingiva: abnormal tooth and associated gingiva and poor dentition Eyes: General: appearance normal, both eyes and all related structures Pupils: Equal, round and reactive pupils present Neck: Neck: normal visual inspection, full ROM, trachea midline and supple Chest: Chest palpation & inspection: normal inspection of the chest Resp: Effort & Inspection: normal respiratory effort and able to speak in complete sentences Auscultation: clear to auscultation bilaterally Cardio: Jugular venous distension: no JVD Rate: regular rate Rhythm: regular rhythm He
[2021-02-08] MEDS: ALBUTEROL SULFATE (*SP) INHALER 2 PUFF INHALATION ×3 (08:55→22:06)
[2021-02-08] MEDS: FAMOTIDINE 20 MG/2 ML VIAL IV PUSH ×2 (09:55→20:40)
[2021-02-08] MEDS: ENOXAPARIN 40 MG/0.4 ML SYRINGE SUB-Q (09:55)
[2021-02-08] MEDS: guaiFENesin 12 HR 600 MG TABCR PO ×2 (09:55→20:40)
[2021-02-08 11:02] LABS: INR 1.1; Prothrombin Time 14.1 Seconds (11.1-14.7)
[2021-02-08] MEDS: FUROSEMIDE INJ 40 MG/4 ML VIAL IV PUSH (16:11)
[2021-02-08] MEDS: ALPRAZolam (*CRX) 0.125 MG TABLET PO (20:40)
[2021-02-08] MEDS: REMDESIVIR 100 MG/NS 250 ML 100 MG/250 ML BAG 250 MG IVPB (20:41)
[2021-02-09] VITALS (9 sets, daily range): BP systolic 131–144; BP diastolic 89–98; PULSE 64–74; RESP 14–20; TEMP 35.9–36.9; O2SAT 94–100
[2021-02-09 06:25] LABS: Basophils Percent Auto 0.3 % (0.2-1.2); Hematocrit 29.8 % (37.0-47.0); Immature Granulocyte Absolute 0.33 K/mm3 (0.00-0.031); Immature Granulocyte Percent A 2.7 % (0-0.5); Lymphocytes Absolute Auto 1.92 K/mm3 (0.9-3.2); Lymphocytes Percent Auto 15.6 % (18.3-44.2); Mean Corpuscular HGB Conc 30.2 g/dl (32-36); Mean Corpuscular Hemoglobin 23.2 pg (26-34); Mean Corpuscular Volume 76.8 fl (80-100); Mean Platelet Volume 10.9 fl (7.4-10.4); Monocytes Absolute Auto 0.9 K/mm3 (0.1-0.6); Neutrophils Absolute Auto 9.1 K/mm3 (1.3-6.7); Neutrophils Percent Auto 74.4 % (45.5-73.1); Nucleated Red Blood Cells Perc 0.2 % (0.0-0.2); Platelet Count Result 777 k/mm3 (150-375); Red Blood Count 3.88 M/mm3 (4.2-5.4); Red Cell Distribution Width 14.3 % (11.5-14.5); White Blood Count 12.3 K/mm3 (4.5-10.0)
[2021-02-09 06:44] LABS: Prothrombin Time 13.5 Seconds (11.1-14.7)
[2021-02-09 07:14] LABS: Alanine Aminotransferase 25 U/L (4-35); Albumin Level 3.9 g/dL (3.5-5.1); Alkaline Phosphatase 68 U/L (38-126); Anion Gap 12 mmol/L (8-16); Aspartate Amino Transferase 34 U/L (14-36); Bilirubin,Total 0.4 mg/dL (0.2-1.3); Blood Urea Nitrogen 16 mg/dL (7-17); Calcium 9.2 mg/dL (8.4-10.2); Carbon Dioxide 24 mmol/L (22-30); Chloride 107 mmol/L (98-107); Estimated CRCL calculation 98 ml/min; Estimated Glomerular Filt Rate > 60; Glucose 114 mg/dL (65-110); Potassium 4.3 mmol/L (3.4-5.0); Sodium 143 mmol/L (137-145)
[2021-02-09] MEDS: guaiFENesin 12 HR 600 MG TABCR PO ×2 (08:05→21:51)
[2021-02-09] MEDS: ENOXAPARIN 40 MG/0.4 ML SYRINGE SUB-Q (08:05)
[2021-02-09] MEDS: FAMOTIDINE 20 MG/2 ML VIAL IV PUSH ×2 (08:06→21:51)
[2021-02-09] MEDS: ALBUTEROL SULFATE (*SP) INHALER 2 PUFF INHALATION ×3 (08:18→20:15)
--- NOTE | 2021-02-09 14:55 | P.PNIM_ITS ---
Progress Note: A&P Assessment and Plan (1) Hypoxemia: Code(s): R09.02 - Hypoxemia Status: Acute Assessment and Plan: * ABG PO2 was 56 with O2 saturation of 91.3% an oxyhemoglobin of 88.7%. on admission * Currently on 3 L nasal cannula, wean to maintain a saturation greater than 90 * IS and pep therapy * CT showed no evidence of a PE (02/04/21) * repeat chest xray showed worsening diffuse lung disease * encourage movement * PT/OT since patient has been on bedrest for several weeks due to breast surgery and now covid (2) Pneumonia due to COVID-19 virus: Code(s): U07.1 - COVID-19; J12.82 - Pneumonia due to coronavirus disease 2018 Status: Acute Assessment and Plan: * dexamethasone change to b.i.d. and remdesivir (day 5), will continue for 5 more days * Encourage incentive spirometry. * Franklyn and Mucinex to help mobilize secretions. * Robitussin added for cough control * albuterol MDI. * Encourage self proning as possible, however, with recent breast surgery encourage as much side laying as possible * Trend inflammatory markers. Current are LDH 941, CRP 5.2, D-dimer is 1.01, ferritin 65.7 (02/07/21) (3) Dehydration: Code(s): E86.0 - Dehydration Status: Acute Assessment and Plan: * Encourage p.o. intake. (4) Acute kidney injury: Code(s): N17.9 - Acute kidney failure, unspecified Status: Acute Assessment and Plan: * BUN and creatinine a bit elevated on admission 8/1.10 * Better after overnight hydration * BUN creatinine today 16/0.8 * Trend labs * Labs in a.m. (5) Hypertension: Code(s): I10 - Essential (primary) hypertension Status: Acute Assessment and Plan: * 144/98 * Trend blood pressure * Consider starting medications * Will start on lisinopril 5mg PO daily Subjective Date/time seen: 02/09/21 12:15 Interval history: Patient is a 30 year old female here for treatment of covid. Patient stated that she is doing better. She said that her cough is better. She also stated that she is able to get to the bathroom, where she does get short of breath, but she stated that she sat down and recovered quickly. She denies chest pain, nausea, vomiting, fevers, sweats, chills. Review of Systems Review of Systems: All systems reviewed & are unremarkable except as noted in HPI and below Exam Const: General: cooperative, healthy appearing, comfortable, no acute distress, well developed, alert, awake and Physically active Nutritional Appearance: well nourished, obese and overweight Orientation/consciousness: oriented to person, oriented to place, oriented to time and patient oriented x3 Limitations: no limitations HENMT: Head: normal to inspection Ears: hearing grossly normal bilaterally General nose exam: Normal external nose present Mouth: Yes Normal oral and palatal mucosa present, Yes lip normal and Yes tongue normal Teeth and gingiva: abnormal tooth and associated gingiva and poor dentition Eyes: General: appearance normal, both eyes and all related structures Pupils: Equal, round and reactive pupils present Neck: Neck: normal visual inspection, full ROM, trachea midline and supple Chest: Chest palpation & inspection: normal inspection of the chest Resp: Effort & Inspection: normal respiratory effort and able to speak in complete sentences Auscultation: clear to auscult
--- NOTE | 2021-02-09 14:55 | PM.IMPN ---
Progress Note: A&P Assessment and Plan (1) Hypoxemia: Code(s): R09.02 - Hypoxemia Status: Acute Assessment and Plan: ABG PO2 was 56 with O2 saturation of 91.3% an oxyhemoglobin of 88.7%. on admission Currently on 3 L nasal cannula, wean to maintain a saturation greater than 90 IS and [address] showed no evidence of a PE (02/04/21) repeat chest xray showed worsening diffuse lung disease encourage movement PT/OT since patient has been on bedrest for several weeks due to breast surgery and now covid (2) Pneumonia due to COVID-19 virus: Code(s): U07.1 - COVID-19; J12.82 - Pneumonia due to coronavirus disease 2018 Status: Acute Assessment and Plan: dexamethasone change to b.i.d. and remdesivir (day 5), will continue for 5 more days Encourage incentive spirometry. Franklyn and Mucinex to help mobilize secretions. Robitussin added for cough control albuterol MDI. Encourage self proning as possible, however, with recent breast surgery encourage as much side laying as possible Trend inflammatory markers. Current are LDH 941, CRP 5.2, D-dimer is 1.01, ferritin 65.7 (02/07/21) (3) Dehydration: Code(s): E86.0 - Dehydration Status: Acute Assessment and Plan: Encourage p.o. intake. (4) Acute kidney injury: Code(s): N17.9 - Acute kidney failure, unspecified Status: Acute Assessment and Plan: BUN and creatinine a bit elevated on admission 8/1.10 Better after overnight hydration BUN creatinine today 16/0.8 Trend labs Labs in a.m. (5) Hypertension: Code(s): I10 - Essential (primary) hypertension Status: Acute Assessment and Plan: 144/98 Trend blood pressure Consider starting medications Will start on lisinopril 5mg PO daily Subjective Date/time seen: 02/09/21 12:15 Interval history: Patient is a 30 year old female here for treatment of covid. Patient stated that she is doing better. She said that her cough is better. She also stated that she is able to get to the bathroom, where she does get short of breath, but she stated that she sat down and recovered quickly. She denies chest pain, nausea, vomiting, fevers, sweats, chills. Review of Systems Review of Systems: All systems reviewed & are unremarkable except as noted in HPI and below Exam Const: General: cooperative, healthy appearing, comfortable, no acute distress, well developed, alert, awake and Physically active Nutritional Appearance: well nourished, obese and overweight Orientation/consciousness: oriented to person, oriented to place, oriented to time and patient oriented x3 Limitations: no limitations HENMT: Head: normal to inspection Ears: hearing grossly normal bilaterally General nose exam: Normal external nose present Mouth: Yes Normal oral and palatal mucosa present, Yes lip normal and Yes tongue normal Teeth and gingiva: abnormal tooth and associated gingiva and poor dentition Eyes: General: appearance normal, both eyes and all related structures Pupils: Equal, round and reactive pupils present Neck: Neck: normal visual inspection, full ROM, trachea midline and supple Chest: Chest palpation & inspection: normal inspection of the chest Resp: Effort & Inspection: normal respiratory effort and able to speak in complete sentences Auscultation: clear to auscultation bilaterally Cardio: Jugular venous distension: no JVD Rate: regular rate Rhythm: regular rhythm Heart sounds: S1 normal heart sound present and S2 normal heart sound present Peripheral pulses: Peripheral pulses 2+ throughout GI: Inspection: normal to inspection Auscultation: normal bowel sounds Skin: General skin exam: normal color and no rashes or lesions noted Lesions: no lesions Rashes: no rashes Trauma: no lacerations or abrasions Wounds: no wounds Hair: normal Nails: normal Neuro: General: oriented to person, oriented
[2021-02-09] MEDS: ALPRAZolam (*CRX) 0.125 MG TABLET PO (21:51)
[2021-02-09] MEDS: REMDESIVIR 100 MG/NS 250 ML 100 MG/250 ML BAG 250 MG IVPB (21:52)
[2021-02-10] VITALS (9 sets, daily range): BP systolic 116–146; BP diastolic 81–95; PULSE 53–80; RESP 16–22; TEMP 35.8–36.4; O2SAT 90–100
[2021-02-10 06:23] LABS: Basophils Percent Auto 0.2 % (0.2-1.2); Eosinophils Percent Auto 0.1 % (0-4.4); Hematocrit 29.4 % (37.0-47.0); Hemoglobin 8.9 g/dL (12.0-15.0); Immature Granulocyte Absolute 0.43 K/mm3 (0.00-0.031); Lymphocytes Absolute Auto 2.13 K/mm3 (0.9-3.2); Lymphocytes Percent Auto 14.9 % (18.3-44.2); Mean Corpuscular HGB Conc 30.3 g/dl (32-36); Mean Corpuscular Hemoglobin 23.5 pg (26-34); Mean Corpuscular Volume 77.6 fl (80-100); Mean Platelet Volume 10.6 fl (7.4-10.4); Monocytes Absolute Auto 1.1 K/mm3 (0.1-0.6); Monocytes Percent Auto 7.8 % (2.6-8.5); Neutrophils Absolute Auto 10.6 K/mm3 (1.3-6.7); Nucleated Red Blood Cells Perc 0.2 % (0.0-0.2); Platelet Count Result 872 k/mm3 (150-375); Red Blood Count 3.79 M/mm3 (4.2-5.4); Red Cell Distribution Width 14.5 % (11.5-14.5); White Blood Count 14.3 K/mm3 (4.5-10.0)
[2021-02-10 06:46] LABS: INR 1.1
[2021-02-10 06:47] LABS: D Dimer 0.88 ug/mL (<0.48)
[2021-02-10 07:03] LABS: Alanine Aminotransferase 27 U/L (4-35); Albumin Level 3.8 g/dL (3.5-5.1); Alkaline Phosphatase 59 U/L (38-126); Anion Gap 10 mmol/L (8-16); Aspartate Amino Transferase 38 U/L (14-36); Bilirubin,Total 0.3 mg/dL (0.2-1.3); Blood Urea Nitrogen 17 mg/dL (7-17); CRP 1.2 mg/dL (<1.0); Calcium 9.2 mg/dL (8.4-10.2); Carbon Dioxide 24 mmol/L (22-30); Chloride 109 mmol/L (98-107); Estimated CRCL calculation 96 ml/min; Estimated Glomerular Filt Rate > 60; Glucose 106 mg/dL (65-110); Magnesium 2.3 mg/dL (1.6-2.3); Potassium 4.6 mmol/L (3.4-5.0); Sodium 143 mmol/L (137-145)
--- NOTE | 2021-02-10 07:27 | P.PNIM_ITS ---
Progress Note: A&P Assessment and Plan (1) Hypoxemia: Code(s): R09.02 - Hypoxemia Status: Acute Assessment and Plan: * ABG PO2 was 56 with O2 saturation of 91.3% an oxyhemoglobin of 88.7%. on admission * Currently on room air sating 95% * IS and pep therapy * CT showed no evidence of a PE (02/08/21) * repeat chest xray showed worsening diffuse lung disease * encourage movement- getting up to walk around in the room * PT/OT since patient has been on bedrest for several weeks due to breast surgery and now covid * Will need home o2 evaluation (2) Pneumonia due to COVID-19 virus: Code(s): U07.1 - COVID-19; J12.82 - Pneumonia due to coronavirus disease 2018 Status: Acute Assessment and Plan: * dexamethasone change to b.i.d. and remdesivir (day 6), will continue for 5 more days * Encourage incentive spirometry. * Franklyn and Mucinex to help mobilize secretions. * Robitussin added for cough control * albuterol MDI. * Encourage self proning as possible, however, with recent breast surgery encourage as much side laying as possible * Trend inflammatory markers. Current are CRP 1.2, D-dimer is 0.88 (02/10/21) (3) Dehydration: Code(s): E86.0 - Dehydration Status: Acute Assessment and Plan: * Encourage p.o. intake. (4) Acute kidney injury: Code(s): N17.9 - Acute kidney failure, unspecified Status: Acute Assessment and Plan: * BUN and creatinine a bit elevated on admission 8/1.10 * Better after overnight hydration * BUN creatinine today 17/0.8 * Trend labs * Labs in a.m. (5) Hypertension: Code(s): I10 - Essential (primary) hypertension Status: Acute Assessment and Plan: * 138/89 * Trend blood pressure * Consider starting medications * Consider lisinopril 5mg PO daily Subjective Date/time seen: 02/10/21 07:27 Interval history: 02/09/21 12:15 Patient is a 30 year old female here for treatment of covid. Patient stated that she is doing better. She said that her cough is better. She also stated that she is able to get to the bathroom, where she does get short of breath, but she stated that she sat down and recovered quickly. She denies chest pain, nausea, vomiting, fevers, sweats, chills. 02/10/21 07:27 Today patient is feeling better. She is currently on room air. She still gets winded with activity, however, she has been sitting and resting, and will resume after she is able to breathe better. She denies nausea, vomiting, fevers, sweats, chills. She also stated that her appetite is better and she is able to eat, and continues to have a taste and smell, She stated that she is ready to go home. With her just getting off the oxygen, if she remains she can probably discharge tomorrow. Review of Systems Review of Systems: All systems reviewed & are unremarkable except as noted in HPI and below Exam Const: General: cooperative, healthy appearing, comfortable, no acute distress, well developed, alert, awake and Physically active Nutritional Appearance: well nourished, obese and overweight Orientation/consciousness: oriented to person, oriented to place, oriented to time and patient oriented x3 Limitations: no limitations HENMT: Head: normal to inspection Ears: hearing grossly normal bilaterally General nose exam: Normal external nose present Mouth: Yes Normal oral and palatal mucosa present, Yes
--- NOTE | 2021-02-10 07:27 | PM.IMPN ---
Progress Note: A&P Assessment and Plan (1) Hypoxemia: Code(s): R09.02 - Hypoxemia Status: Acute Assessment and Plan: ABG PO2 was 56 with O2 saturation of 91.3% an oxyhemoglobin of 88.7%. on admission Currently on room air sating 95% IS and pep therapy CT showed no evidence of a PE (02/08/21) repeat chest xray showed worsening diffuse lung disease encourage movement- getting up to walk around in the room PT/OT since patient has been on bedrest for several weeks due to breast surgery and now covid Will need home o2 evaluation (2) Pneumonia due to COVID-19 virus: Code(s): U07.1 - COVID-19; J12.82 - Pneumonia due to coronavirus disease 2018 Status: Acute Assessment and Plan: dexamethasone change to b.i.d. and remdesivir (day 6), will continue for 5 more days Encourage incentive spirometry. Franklyn and Mucinex to help mobilize secretions. Robitussin added for cough control albuterol MDI. Encourage self proning as possible, however, with recent breast surgery encourage as much side laying as possible Trend inflammatory markers. Current are CRP 1.2, D-dimer is 0.88 (02/10/21) (3) Dehydration: Code(s): E86.0 - Dehydration Status: Acute Assessment and Plan: Encourage p.o. intake. (4) Acute kidney injury: Code(s): N17.9 - Acute kidney failure, unspecified Status: Acute Assessment and Plan: BUN and creatinine a bit elevated on admission 8/1.10 Better after overnight hydration BUN creatinine today 17/0.8 Trend labs Labs in a.m. (5) Hypertension: Code(s): I10 - Essential (primary) hypertension Status: Acute Assessment and Plan: 138/89 Trend blood pressure Consider starting medications Consider lisinopril 5mg PO daily Subjective Date/time seen: 02/10/21 07:27 Interval history: 02/09/21 12:15 Patient is a 30 year old female here for treatment of covid. Patient stated that she is doing better. She said that her cough is better. She also stated that she is able to get to the bathroom, where she does get short of breath, but she stated that she sat down and recovered quickly. She denies chest pain, nausea, vomiting, fevers, sweats, chills. 02/10/21 07:27 Today patient is feeling better. She is currently on room air. She still gets winded with activity, however, she has been sitting and resting, and will resume after she is able to breathe better. She denies nausea, vomiting, fevers, sweats, chills. She also stated that her appetite is better and she is able to eat, and continues to have a taste and smell, She stated that she is ready to go home. With her just getting off the oxygen, if she remains she can probably discharge tomorrow. Review of Systems Review of Systems: All systems reviewed & are unremarkable except as noted in HPI and below Exam Const: General: cooperative, healthy appearing, comfortable, no acute distress, well developed, alert, awake and Physically active Nutritional Appearance: well nourished, obese and overweight Orientation/consciousness: oriented to person, oriented to place, oriented to time and patient oriented x3 Limitations: no limitations HENMT: Head: normal to inspection Ears: hearing grossly normal bilaterally General nose exam: Normal external nose present Mouth: Yes Normal oral and palatal mucosa present, Yes lip normal and Yes tongue normal Teeth and gingiva: abnormal tooth and associated gingiva and poor dentition Eyes: General: appearance normal, both eyes and all related structures Pupils: Equal, round and reactive pupils present Neck: Neck: normal visual inspection, full ROM, trachea midline and supple Chest: Chest palpation & inspection: normal inspection of the chest Resp: Effort & Inspection: normal respiratory effort and able to speak in complete sentences Auscultation: clear to auscultation bilaterally
[2021-02-10] MEDS: ALBUTEROL SULFATE (*SP) INHALER 2 PUFF INHALATION ×4 (08:11→21:23)
[2021-02-10] MEDS: ENOXAPARIN 40 MG/0.4 ML SYRINGE SUB-Q (08:56)
[2021-02-10] MEDS: FAMOTIDINE 20 MG/2 ML VIAL IV PUSH ×2 (08:57→21:46)
[2021-02-10] MEDS: guaiFENesin 12 HR 600 MG TABCR PO ×2 (08:57→21:46)
[2021-02-10] MEDS: REMDESIVIR 100 MG/NS 250 ML 100 MG/250 ML BAG 250 MG IVPB (21:46)
[2021-02-10] MEDS: ALPRAZolam (*CRX) 0.125 MG TABLET PO (23:48)
[2021-02-11] VITALS: BP 126/79; PULSE 79; RESP 18; TEMP 36.1; O2SAT 96
[2021-02-11 04:00] VITALS: BP 139/89; PULSE 63; RESP 18; TEMP 35.9; O2SAT 98
[2021-02-11 07:02] LABS: Alanine Aminotransferase 30 U/L (4-35); Estimated CRCL calculation 97 ml/min; Estimated Glomerular Filt Rate > 60
[2021-02-11 07:03] LABS: Prothrombin Time 13.4 Seconds (11.1-14.7)
--- NOTE | 2021-02-11 07:42 | P.DS_ITS ---
DS: Admitting Diagnosis Discharge Date Date of service 02/11/2021 8:00 a.m. Admitting Diagnosis COVID-19 DS: Discharge Diagnosis Discharge Diagnosis (1) Hypoxemia: Code(s): R09.02 - Hypoxemia Status: Acute Assessment and Plan: * ABG PO2 was 56 with O2 saturation of 91.3% an oxyhemoglobin of 88.7%. on admission * Currently on room air sating 98% * IS and pep therapy * CT showed no evidence of a PE (02/08/21) * repeat chest xray showed worsening diffuse lung disease * encourage movement- getting up to walk around in the room * PT/OT since patient has been on bedrest for several weeks due to breast surgery and now covid * Will need home o2 evaluation (2) Pneumonia due to COVID-19 virus: Code(s): U07.1 - COVID-19; J12.82 - Pneumonia due to coronavirus disease 2018 Status: Acute Assessment and Plan: * dexamethasone change to b.i.d. and remdesivir (day 7), will continue for 5 more days * Encourage incentive spirometry. * Franklyn and Mucinex to help mobilize secretions. * Robitussin added for cough control * albuterol MDI. * Encourage self proning as possible, however, with recent breast surgery encourage as much side laying as possible * Trend inflammatory markers. Current are CRP 1.2, D-dimer is 0.88 (02/10/21) Continue Decadron for 3 days (3) Dehydration: Code(s): E86.0 - Dehydration Status: Acute Assessment and Plan: * Encourage p.o. intake. (4) Acute kidney injury: Code(s): N17.9 - Acute kidney failure, unspecified Status: Acute Assessment and Plan: * BUN and creatinine a bit elevated on admission 8/1.10 * Better after overnight hydration * BUN creatinine today 17/0.8 * Trend labs (5) Hypertension: Code(s): I10 - Essential (primary) hypertension Status: Acute Assessment and Plan: * 139/89 * Trend blood pressure * Consider starting medications * Consider lisinopril 5mg PO daily DS: Summary Hospital Course Hospital Course: This is a very pleasant 30-year-old female with PCOS who presented to the emergency department for evaluation of shortness of breath with nausea vomiting diarrhea. patient originally had a COVID test 10 days prior to admission which came back -3 days later came back positive. Patient then started having fevers with nausea, vomiting, diarrhea accompany with fatigue. Since admission patient was placed on IV remdesivir, Decadron, supplemental oxygen. Supplemental oxygen has been weaned down and patient is currently on room air. Patient states she still gets a little winded whenever she walks or exerts herself. However patient stated that she does sit down and rest when this happens and her oxygen saturation improves. She is able to walk around the room and go to the bathroom. Patient states she is feeling a whole lot better and has been on room air since 02/10/2021 in the a.m.. Today patient is ready to go home. Patient denies chest pain, shortness of breath at rest, nausea, vomiting, diarrhea, constipation, fevers, sweats, chills. Status at Discharge Functional status at discharge: independent ambulation Overall status at discharge: patient is back to baseline Time Spent with Patient Time attestation: Total time spent providing and/or coordinating discharge services:46 minutes Time spent: Greater than 30 minutes Exam Const: General: cooperative, healthy appearing, comfortable, no acute distress, well develop
--- NOTE | 2021-02-11 07:42 | PM.DS ---
DS: Admitting Diagnosis Discharge Date Date of service 02/11/2021 8:00 a.m. Admitting Diagnosis COVID-19 DS: Discharge Diagnosis Discharge Diagnosis (1) Hypoxemia: Code(s): R09.02 - Hypoxemia Status: Acute Assessment and Plan: ABG PO2 was 56 with O2 saturation of 91.3% an oxyhemoglobin of 88.7%. on admission Currently on room air sating 98% IS and pep therapy CT showed no evidence of a PE (02/08/21) repeat chest xray showed worsening diffuse lung disease encourage movement- getting up to walk around in the room PT/OT since patient has been on bedrest for several weeks due to breast surgery and now covid Will need home o2 evaluation (2) Pneumonia due to COVID-19 virus: Code(s): U07.1 - COVID-19; J12.82 - Pneumonia due to coronavirus disease 2018 Status: Acute Assessment and Plan: dexamethasone change to b.i.d. and remdesivir (day 7), will continue for 5 more days Encourage incentive spirometry. Franklyn and Mucinex to help mobilize secretions. Robitussin added for cough control albuterol MDI. Encourage self proning as possible, however, with recent breast surgery encourage as much side laying as possible Trend inflammatory markers. Current are CRP 1.2, D-dimer is 0.88 (02/10/21) Continue Decadron for 3 days (3) Dehydration: Code(s): E86.0 - Dehydration Status: Acute Assessment and Plan: Encourage p.o. intake. (4) Acute kidney injury: Code(s): N17.9 - Acute kidney failure, unspecified Status: Acute Assessment and Plan: BUN and creatinine a bit elevated on admission 8/1.10 Better after overnight hydration BUN creatinine today 17/0.8 Trend labs (5) Hypertension: Code(s): I10 - Essential (primary) hypertension Status: Acute Assessment and Plan: 139/89 Trend blood pressure Consider starting medications Consider lisinopril 5mg PO daily DS: Summary Hospital Course Hospital Course: This is a very pleasant 30-year-old female with PCOS who presented to the emergency department for evaluation of shortness of breath with nausea vomiting diarrhea. patient originally had a COVID test 10 days prior to admission which came back -3 days later came back positive. Patient then started having fevers with nausea, vomiting, diarrhea accompany with fatigue. Since admission patient was placed on IV remdesivir, Decadron, supplemental oxygen. Supplemental oxygen has been weaned down and patient is currently on room air. Patient states she still gets a little winded whenever she walks or exerts herself. However patient stated that she does sit down and rest when this happens and her oxygen saturation improves. She is able to walk around the room and go to the bathroom. Patient states she is feeling a whole lot better and has been on room air since 02/10/2021 in the a.m.. Today patient is ready to go home. Patient denies chest pain, shortness of breath at rest, nausea, vomiting, diarrhea, constipation, fevers, sweats, chills. Status at Discharge Functional status at discharge: independent ambulation Overall status at discharge: patient is back to baseline Time Spent with Patient Time attestation: Total time spent providing and/or coordinating discharge services:46 minutes Time spent: Greater than 30 minutes Exam Const: General: cooperative, healthy appearing, comfortable, no acute distress, well developed, alert, awake and Physically active Nutritional Appearance: well nourished, obese and overweight Orientation/consciousness: oriented to person, oriented to place, oriented to time and patient oriented x3 Limitations: no limitations HENMT: Head: normal to inspection Ears: hearing grossly normal bilaterally General nose exam: Normal external nose present Mouth: Yes Normal oral and palatal mucosa present, Yes lip normal and Yes tongue normal Teeth and gingiva: abnormal too
[2021-02-11 08:00] VITALS: BP 137/81; PULSE 55; RESP 21; TEMP 36.2; O2SAT 96; O2SAT 97
[2021-02-11] MEDS: FAMOTIDINE 20 MG/2 ML VIAL IV PUSH (08:57)
[2021-02-11] MEDS: guaiFENesin/DEXTROMETHORPHAN 10 ML UDC 5 ML PO (08:57)
[2021-02-11] MEDS: ENOXAPARIN 40 MG/0.4 ML SYRINGE SUB-Q (08:57)
[2021-02-11] MEDS: guaiFENesin 12 HR 600 MG TABCR PO (08:58)
[2021-02-11] MEDS: ALBUTEROL SULFATE (*SP) INHALER 2 PUFF INHALATION ×2 (09:02→12:02)
[2021-02-11 11:00] VITALS: PULSE 94; O2SAT 97
[2021-02-11 11:05] VITALS: PULSE 112; O2SAT 93
[2021-02-11 11:15] VITALS: PULSE 95; O2SAT 96
--- NOTE | 2021-02-11 11:19 | PCRCNOTE ---
HOME O2 EVAL COMPLETE, NO REQUIREMENTS
== END 2021-02-11 12:40 | disposition home or self-care (01) | DRG 177 ==
LOC: ANHED 15:32 → ANH3MEDSUR 18:19
PROVIDERS: Nurse Practitioner; Physician Assistant; Admitting Provider Family Medicine; Emergency Provider General Practice; PCP Emergency Medicine; Visit Provider Internal Medicine
DX: U07.1 COVID-19 (principal); J12.82 Pneumonia due to coronavirus disease 2019; N17.9 Acute kidney failure, unspecified; R09.02 Hypoxemia; E86.0 Dehydration; I10 Essential (primary) hypertension; E28.2 Polycystic ovarian syndrome; Z79.899 Other long term (current) drug therapy; Z98.890 Other specified postprocedural states
CPT/HCPCS: 36415; 36600; 71045; 71046; 71275; 80053; 82375; 82565; 82728; 82805; 83050; 83605; 83615; 83735; 84460; 85025; 85380; 85610; 85730; 86140; 93005; 94618; 94640; 94667; 94668; 96361; 96365; 96374; 96375; 97110; 97161; 97165; 99285; A9270; G0378; J0131; J1100; J1650; J1940; J2405; J7030; J7120; J8540; Q9967

== ENCOUNTER 2022-01-13 07:23 | Emergency (ER) | payer BC, MEDICAID, SELFPAY ==
[2022-01-13] VITALS (8 sets, daily range): BP systolic 130–153; BP diastolic 96–107; PULSE 93–104; RESP 15–19; TEMP 36.5; O2SAT 97–100
--- NOTE | ~2022-01-13 | CT_ITS ---
EXAMINATION: CTA chest PE protocol DATE: 01/13/2022 09:08 CDT INDICATION: Dyspnea TECHNIQUE: Computed tomographic angiography (CTA) of the chest was performed with 100 mL Omnipaque-35 0 intravenous contrast. The dose-length product was 642.47 mGy-cm. Maximum intensity projection 3D-re constructions of the aorta and other arteries were constructed by the technologist on a separate work station. Automated exposure control and iterative reconstruction technique were employed. COMPARISON: CT dated 02/04/2021. FINDINGS: Study is technically adequate without evidence for pulmonary embolism. Cardiomegaly. No sig nificant pleural or pericardial effusion. There is residual thymic tissue in the anterior mediastinum . There is mild thyromegaly. No significant pleural or pericardial effusion. No focal airspace diseas e. No pneumothorax. No endobronchial lesions. No pulmonary nodules. There is mild dextroscoliosis. IMPRESSION: 1. No evidence for pulmonary embolism. No acute cardiopulmonary disease. Reviewed, dictated and finalized at location B.
--- NOTE | ~2022-01-13 | XR_ITS ---
EXAMINATION: XR chest 2V 01/13/2022 08:11 INDICATION: Cough with dyspnea PROCEDURE: 2 view chest COMPARISON: Comparison to multiple prior studies sequentially, with oldest reviewed study dated 10/2016. FINDINGS: The lungs are clear. The cardiomediastinal silhouette is within normal limits. There are no pleural effusions. There is no pneumothorax suspected. There is dextroscoliosis of the thoracic spine. IMPRESSION: 1: NO ACUTE CARDIOPULMONARY DISEASE. Reviewed, dictated and finalized at location B.
--- NOTE | 2022-01-13 07:40 | ECG_ITS ---
Measurements Intervals [place] Rate: 97 P: 51 UT: 146 QRS: -2 QRSD: 93 T: -19 QT: 325 QTc: 414 Interpretive Statements SINUS RHYTHM MODERATE VOLTAGE CRITERIA FOR LVH, CONSIDER NORMAL VARIANT [MEETS CRITERIA IN ONE OF: R(aVL), S(V1), R(V5), R(V5/V6)+S(V1)] NONSPECIFIC T-WAVE ABNORMALITY COMPARED TO ECG 02/04/2021 16:03:11 HEART RATE REDUCED NO OTHER DIFFERENCE Electronically Signed On 01-13-2022 13:59:54 CDT by Jerry Self M.D.
--- NOTE | 2022-01-13 07:46 | ED.SOB ---
HPI - SOB/Dyspnea General Chief Complaint: Shortness of Breath/Dyspnea Stated Complaint: shortness of breath, nausea, sluggish Time Seen by Provider: 01/13/22 07:28 Source: RN notes reviewed History of Present Illness HPI Narrative: Patient presents emergency department from home for shortness of breath. Patient states that she feels like she cannot take a full deep breath and this is causing her to feel short of breath. Patient states that symptoms been ongoing since last night. She states has been associate with nausea and one episode of vomiting yesterday she denies any fever chills rhinorrhea or sore throat denies any chest pain or abdominal pain. States she she has not had any cough states she does have a history of having COVID approximately 1 year ago denies any tobacco use Related Data Allergies Allergy/AdvReac Type Severity Reaction Status Date / Time No Known Allergies Allergy Unknown Verified 01/13/22 07:45 Review of Systems Review of Systems: Gen.: Denies fevers or chills ENT: Denies congestion Respiratory: reports shortness of breath denies cough CV: Denies chest pain or palpitations GI: See HPI Musculoskeletal: Denies back pain or muscle pain Neuro: Denies numbness, tingling, weakness or focal weakness Skin: Denies rash Except as documented, all other systems reviewed and negative [facility] Past Medical History Medical History Polycystic ovarian syndrome Surgical History Surgical History (Updated 02/04/21 @ 22:18 by Ifrah Ibanez PA-C) History of bilateral breast reduction surgery (~12/2020) Family History Family History Mother Hypertension Grandparent Diabetes mellitus Social History Social History Social History: Surrogate decision maker: Vika Kamara, mother. Code status: Full code. Smoking status: Never smoker Alcohol intake: never Substance use: never Additional living arrangements comments: The patient lives in [place]. 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 Exam Narrative: APPEARANCE: No acute distress, nontoxic, resting in bed EYES: EOMI HEENT: Normocephalic, atraumatic, OMM RESPIRATORY: No respiratory distress Clear to auscultation bilaterally with no rhonchi wheezing or rales. CARDIOVASCULAR: Regular rate and rhythm without murmurs rubs or gallops. ABDOMINAL: Soft, nontender, nondistended, no rebound or guarding MUSCULOSKELETAl: Moves all extremities. No clubbing, cyanosis or edema. NEURO: Awake and alert. Following commands, speech normal, no focal deficits SKIN:: Warm, dry. No rashes lesions or abrasions PSYCHIATRIC: Normal affect/mood, Course Course Emergency Course: Patient had an episode of feeling short of breath. At that time patient was evaluated 100% on room air. Anxious at that time Ativan given with improvement Discussed with patient results of workup and diagnosis. Discussed need for follow-up with primary care, proper use of medication, and reasons to return to the emergency department. Patient understands and agrees to current treatment plan Vital Signs Vital signs: Vital Signs Temperature 97.7 F 01/13/22 07:29 Pulse Rate 99 01/13/22 07:29 Respiratory Rate 18 01/13/22 07:29 Blood Pressure 148/104 H 01/13/22 07:29 Pulse Oximetry 99 01/13/22 07:29 Oxygen Delivery Room Air 01/13/22 07:29 Temperature 97.7 F 01/13/22 07:29 Pulse Rate 94 01/13/22 11:10 Respiratory Rate 15 01/13/22 11:10 Blood Pressure 130/105 H 01/13/22 11:10 Pulse Oximetry 99 01/13/22 11:12 Oxygen Delivery Room Air 01/13/22 11:12 MDM - SOB/Dyspnea MDM Narrative Medical decision making narrative: Patient has dyspnea of unclear etiology. No wheezing on clinical exam. Low risk well score, PE is felt unlikely. No abn
[2022-01-13 07:52] LABS: Basophils Absolute Auto 0.1 K/mm3 (0.0-0.1); Basophils Percent Auto 0.8 % (0.2-1.2); Eosinophils Absolute Auto 0.1 K/mm3 (0-0.3); Eosinophils Percent Auto 1.5 % (0-4.4); Hematocrit 35.9 % (37.0-47.0); Hemoglobin 11.1 g/dL (12.0-15.0); Immature Granulocyte Absolute 0.02 K/mm3 (0.00-0.031); Immature Granulocyte Percent A 0.3 % (0-0.5); Lymphocytes Absolute Auto 2.41 K/mm3 (0.9-3.2); Lymphocytes Percent Auto 30.3 % (18.3-44.2); Mean Corpuscular HGB Conc 30.9 g/dl (32-36); Mean Corpuscular Hemoglobin 23.3 pg (26-34); Mean Corpuscular Volume 75.4 fl (80-100); Mean Platelet Volume 10.5 fl (7.4-10.4); Monocytes Absolute Auto 0.6 K/mm3 (0.1-0.6); Monocytes Percent Auto 7.3 % (2.6-8.5); Neutrophils Absolute Auto 4.8 K/mm3 (1.3-6.7); Neutrophils Percent Auto 59.8 % (45.5-73.1); Platelet Count Result 495 k/mm3 (150-375); Red Blood Count 4.76 M/mm3 (4.2-5.4); Red Cell Distribution Width 16.5 % (11.5-14.5)
[2022-01-13 08:02] LABS: Alanine Aminotransferase 18 U/L (6-35); Albumin Level 4.2 g/dL (3.5-5.1); Alkaline Phosphatase 92 U/L (38-126); Anion Gap 8 mmol/L (8-16); Aspartate Amino Transferase 17 U/L (14-36); Bilirubin,Total 0.2 mg/dL (0.2-1.3); Blood Urea Nitrogen 9 mg/dL (7-17); Calcium 9.3 mg/dL (8.4-10.2); Carbon Dioxide 25 mmol/L (22-30); Chloride 105 mmol/L (98-107); Estimated CRCL calculation 89 ml/min; Estimated Glomerular Filt Rate > 60; Glucose 133 mg/dL (65-110); Lipase 118 U/L (23-300); Potassium 4.2 mmol/L (3.4-5.0); Sodium 138 mmol/L (137-145)
[2022-01-13 08:04] LABS: Partial Thromboplastin Time 28.8 SECONDS (22.3-36.8)
[2022-01-13] MEDS: ONDANSETRON INJ 4 MG/2 ML VIAL IV PUSH (08:04)
[2022-01-13 08:05] LABS: INR 1.1; Prothrombin Time 13.6 Seconds (11.1-14.7)
[2022-01-13 08:07] LABS: D Dimer 0.73 ug/mL (<0.48)
[2022-01-13] MEDS: SODIUM CHLORIDE 0.9% IV 1,000 ML 999 ML IV CONT (08:07)
[2022-01-13 08:13] LABS: Troponin I 0.013 ng/mL (0.000-0.034)
[2022-01-13 08:29] LABS: SARS-CoV-2 RNA PCR Negative
[2022-01-13] MEDS: LORazepam INJ (*CRX) 2 MG/ML VIAL 0.5 MG IV PUSH (10:05)
[2022-01-13 10:46] LABS: Troponin I < 0.012 ng/mL (0.000-0.034)
== END 2022-01-13 11:29 | disposition home or self-care (01) ==
PROVIDERS: Emergency Provider Emergency Medicine; PCP Emergency Medicine
DX: R06.00 Dyspnea, unspecified (principal); Z20.822 Contact with and (suspected) exposure to COVID-19; Z86.16 Personal history of COVID-19; R94.31 Abnormal electrocardiogram [ECG] [EKG]
CPT/HCPCS: 36415; 71046; 71275; 80053; 81025; 83690; 84484; 85025; 85380; 85610; 85730; 93005; 96361; 96374; 96375; 99284; C9803; J2060; J2405; J7030; Q9967; U0003; U0005

== ENCOUNTER 2022-11-11 12:53 | Outpatient (CLI) | payer OTHER, SELFPAY ==
--- NOTE | ~2022-11-11 | US_ITS ---
EXAMINATION: US pelvic complete w TV DATE: 11/11/2022 14:51 INDICATION: Menorrhagia Comparison:No prior studies for comparison. TECHNIQUE: Multiple transabdominal and endovaginal sonographic images of the pelvis performed. FINDINGS: The uterus measures 8 x 4.4 x 4.9 cm. The uterus there is a complex mass measuring 2.9 cm, compatible with fibroid. The endometrial complex measures 1.5 cm. The right ovary measures 3.8 x 2.4 x 5 cm and the left ovary measures 3.6 x 2.6 x 3.8 cm. There are small follicles in each ovary. Normal doppler signal in both ovaries. There is no free fluid in the pelvis. There are no abnormal masses seen on either side. IMPRESSION: 1. Uterine fibroid measuring 2.9 cm. 2: Endometrial thickening measuring 1.5 cm. Reviewed, dictated and finalized at location []
== END 2022-11-11 12:54 | disposition home or self-care (01) ==
PROVIDERS: PCP Emergency Medicine; Visit Provider Emergency Medicine
DX: N92.0 Excessive and frequent menstruation with regular cycle (principal); D25.9 Leiomyoma of uterus, unspecified
CPT/HCPCS: 76830; 76856

== ENCOUNTER 2022-11-21 09:29 | Outpatient (CLI) | payer OTHER, SELFPAY ==
--- NOTE | ~2022-11-21 | US_ITS ---
EXAMINATION: US FNA w image guidance, US FNA additional DATE: 11/21/2022 10:21 INDICATION: Bilateral thyroid nodules TECHNIQUE: A time-out was performed to verify the patient's name, date of , and procedure to be performed . The procedure and its benefits and risks were discussed with the patient. Risks specifically discus sed included bleeding and infection. The patient understood the risks and agreed to proceed. The neck was prepped and draped in the usual sterile manner. Attention was first turned to the left thyroid n odule. 3 mL 1% lidocaine was used for local anesthesia. 6 passes were made with a 25G needle into th e lesion. Appropriate needle location was documented with continuous sonographic guidance. Attention was then turned to the right thyroid nodule. An additional 5 mm of 1% lidocaine was used for local an esthesia. 6 passes were made with a 25G needle into the lesion again with continuous sonographic guid ance. Sterile bandages were applied. There were no immediate complications. FINDINGS: Grayscale ultrasound images demonstrate biopsy needles advanced into first a 3.7 cm predominantly anila id left thyroid nodule and subsequently a 4.1 cm, solid right thyroid nodule. IMPRESSION: 1. Successful ultrasound-guided fine needle aspiration of a 3.7 cm left thyroid nodule. 2. Successful ultrasound-guided fine-needle aspiration of a 4.1 cm right thyroid nodule. Reviewed, dictated and finalized at location A. IMPRESSION: 1. Successful ultrasound-guided fine needle aspiration of a 3.7 cm left thyroi d nodule. 2. Successful ultrasound-guided fine-needle aspiration of a 4.1 cm right thyroi d nodule.
== END 2022-11-21 09:30 | disposition home or self-care (01) ==
PROVIDERS: PCP Emergency Medicine; Visit Provider Emergency Medicine
DX: E04.2 Nontoxic multinodular goiter (principal)
CPT/HCPCS: 10005; 10006; 88173; 88305

== ENCOUNTER 2023-03-05 14:59 | Outpatient (CLI) | payer OTHER, SELFPAY ==
[2023-03-05 18:05] LABS: Thyroid Stimulating Hormone 0.196 uIU/mL (0.465-4.680)
[2023-03-08 04:18] LABS: Thyroid Peroxidase Antibodies <1 IU/mL (<9)
== END 2023-03-05 15:00 | disposition home or self-care (01) ==
LOC: ANHWCLAB 15:01
PROVIDERS: PCP Emergency Medicine; Visit Provider Internal Medicine
DX: E04.2 Nontoxic multinodular goiter (principal)
CPT/HCPCS: 36415; 84439; 84443; 86376

== ENCOUNTER 2023-04-03 12:46 | Outpatient (CLI) | payer OTHER, SELFPAY ==
--- NOTE | ~2023-04-03 | US_ITS ---
EXAMINATION: US FNA w image guidance DATE: 04/03/2023 14:35 INDICATION: Bilateral thyroid nodules with prior nondiagnostic biopsy TECHNIQUE: A time-out was performed to verify the patient's name, date of , and procedure to be performed . The procedure and its benefits and risks were discussed with the patient. Risks specifically discus sed included bleeding and infection. The patient understood the risks and agreed to proceed. The neck was prepped and draped in the usual sterile manner. Attention was first turned to the left thyroid n odule. 3 mL 1% lidocaine was used for local anesthesia. 6 passes were made with a 25G needle into th e lesion. Attention was then turned to the right thyroid nodule with an additional 3 mL 1% lidocaine was used for local anesthesia. 6 passes were made with a 20 5G needle into the lesion. Appropriate ne edle location during both biopsies was documented with continuous sonographic guidance. Sterile lai ges were applied. There were no immediate complications. FINDINGS: Grayscale ultrasound images demonstrate biopsy needles advanced into a 3.7 cm heterogeneous predomina nt solid left thyroid nodule. Subsequent images demonstrate biopsy needles advanced into a 4.1 cm het erogeneous predominantly solid right thyroid nodule. IMPRESSION: 1. Successful ultrasound-guided fine needle aspiration of a 3.7 cm left thyroid nodule 2. Successful ultrasound guided fine needle aspiration of a 4.1 cm right thyroid nodule.. Reviewed, dictated and finalized at location A. IMPRESSION: 1. Successful ultrasound-guided fine needle aspiration of a 3.7 cm left thyroid nodule 2. Successful ultrasound guided fine needle aspiration of a 4.1 cm right thyroi d nodule..
--- NOTE | ~2023-04-03 | US_ITS ---
EXAMINATION: US FNA w image guidance DATE: 04/03/2023 14:35 INDICATION: Bilateral thyroid nodules with prior nondiagnostic biopsy TECHNIQUE: A time-out was performed to verify the patient's name, date of , and procedure to be performed . The procedure and its benefits and risks were discussed with the patient. Risks specifically discus sed included bleeding and infection. The patient understood the risks and agreed to proceed. The neck was prepped and draped in the usual sterile manner. Attention was first turned to the left thyroid n odule. 3 mL 1% lidocaine was used for local anesthesia. 6 passes were made with a 25G needle into th e lesion. Attention was then turned to the right thyroid nodule with an additional 3 mL 1% lidocaine was used for local anesthesia. 6 passes were made with a 20 5G needle into the lesion. Appropriate ne edle location during both biopsies was documented with continuous sonographic guidance. Sterile lai ges were applied. There were no immediate complications. FINDINGS: Grayscale ultrasound images demonstrate biopsy needles advanced into a 3.7 cm heterogeneous predomina nt solid left thyroid nodule. Subsequent images demonstrate biopsy needles advanced into a 4.1 cm het erogeneous predominantly solid right thyroid nodule. IMPRESSION: 1. Successful ultrasound-guided fine needle aspiration of a 3.7 cm left thyroid nodule 2. Successful ultrasound guided fine needle aspiration of a 4.1 cm right thyroid nodule. Reviewed, dictated and finalized at location A. IMPRESSION: 1. Successful ultrasound-guided fine needle aspiration of a 3.7 cm left thyroid nodule 2. Successful ultrasound guided fine needle aspiration of a 4.1 cm right thyroi d nodule.
== END 2023-04-03 12:47 | disposition home or self-care (01) ==
PROVIDERS: PCP Emergency Medicine; Visit Provider Internal Medicine
DX: E04.2 Nontoxic multinodular goiter (principal)
CPT/HCPCS: 10005; 10006; 88173; 88305

== ENCOUNTER 2023-05-05 18:45 | Emergency (ER) | payer OTHER, SELFPAY ==
--- NOTE | ~2023-05-05 | XR_ITS ---
Clinical Indication: Chest pain PA and lateral views of the chest: Comparison: 01/13/2022 Findings: The lungs are clear, without evidence of focal consolidation or pleural effusion. Cardiome diastinal silhouette is within normal limits. Bones and soft tissues are unremarkable. Impression: Normal chest. Reviewed, dictated and finalized at location . 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
[2023-05-05 18:59] VITALS: BP 161/114; PULSE 101; RESP 20; TEMP 36.2; O2SAT 100
--- NOTE | 2023-05-05 19:02 | ECG_ITS ---
Measurements Intervals [place] Rate: 107 P: 49 [place]: 146 QRS: 13 QRSD: 102 T: 29 QT: 342 QTc: 457 Interpretive Statements SINUS TACHYCARDIA INCOMPLETE RIGHT BUNDLE BRANCH BLOCK [90+ ms QRS DURATION, TERMINAL R IN V1/V2, 40+ ms S IN I/aVL/V4/V5/V6] NONSPECIFIC T-WAVE ABNORMALITY ABNORMAL RHYTHM ECG COMPARED TO ECG 01/13/2022 07:33:02 SINUS TACHYCARDIA NOW PRESENT INCOMPLETE RIGHT BUNDLE-BRANCH BLOCK NOW PRESENT Electronically Signed On 05-05-2023 20:26:32 CULINARY WORKER by Trina Gee M.D.
--- NOTE | 2023-05-05 21:16 | ECG_ITS ---
Measurements Intervals [place] Rate: 105 P: 41 [place]: 128 QRS: 13 QRSD: 95 T: 14 QT: 338 QTc: 448 Interpretive Statements SINUS TACHYCARDIA NONSPECIFIC T-WAVE ABNORMALITY ABNORMAL RHYTHM ECG COMPARED TO ECG 05/05/2023 19:07:19 NO SIGNIFICANT CHANGES Electronically Signed On 05-06-2023 12:06:08 GAS APPLIANCE MECHANIC by Trina Gee M.D.
--- NOTE | 2023-05-05 21:18 | PC.NURSE ---
patient c/o increase in chest pain and intensity. provider aware and new orders received
[2023-05-05 21:20] VITALS: BP 161/114; PULSE 106; RESP 20; O2SAT 100
[2023-05-05 23:45] VITALS: BP 140/108; PULSE 94; RESP 20; O2SAT 96
[2023-05-06 00:27] LABS: Basophils Absolute Auto 0.1 K/mm3 (0.0-0.1); Basophils Percent Auto 0.9 % (0.2-1.2); Eosinophils Absolute Auto 0.2 K/mm3 (0-0.3); Hematocrit 41.8 % (37.0-47.0); Hemoglobin 13.2 g/dL (12.0-15.0); Immature Granulocyte Absolute 0.02 K/mm3 (0.00-0.031); Immature Granulocyte Percent A 0.2 % (0-0.5); Lymphocytes Percent Auto 33.6 % (18.3-44.2); Mean Corpuscular HGB Conc 31.6 g/dl (32-36); Mean Corpuscular Hemoglobin 27.1 pg (26-34); Mean Corpuscular Volume 85.8 fl (80-100); Mean Platelet Volume 10.5 fl (7.4-10.4); Monocytes Absolute Auto 0.5 K/mm3 (0.1-0.6); Monocytes Percent Auto 5.9 % (2.6-8.5); Neutrophils Absolute Auto 5.1 K/mm3 (1.3-6.7); Neutrophils Percent Auto 57.4 % (45.5-73.1); Platelet Count Result 381 k/mm3 (150-375); Red Blood Count 4.87 M/mm3 (4.2-5.4); Red Cell Distribution Width 13.3 % (11.5-14.5); White Blood Count 8.9 K/mm3 (4.5-10.0)
--- NOTE | 2023-05-06 01:08 | ED.RECABL ---
HPI - Recheck/Abnormal Lab/Rx General Chief Complaint: Recheck/Abnormal Lab/Rx Stated Complaint: ELEVATED BP Time Seen by Provider: 05/05/23 23:54 Source: patient Mode of arrival: ambulatory Limitations: no limitations History of Present Illness HPI narrative: This is a 32 year old female that presents to the ER for chest pain. Ongoing since this afternoon. Reports right sided chest tightness radiating into her right arm. Reports her blood pressure was elevated at work and she was sent in for evaluation. Denies fever, cough, shortness of breath, or lower extremity edema. Related Data Home Medications Medication Instructions Recorded Confirmed No Home Medications 03/05/23 03/05/23 Allergies Allergy/AdvReac Type Severity Reaction Status Date / Time No Known Allergies Allergy Unknown Verified 03/05/23 14:35 Review of Systems Review of Systems: CONSTITUTIONAL: Denies fever CARDIOVASCULAR: Reports chest pain. Denies edema. RESPIRATORY: Denies dyspnea. All systems reviewed & are unremarkable except as noted in HPI and below PMFSH Past Medical History Medical History Polycystic ovarian syndrome Surgical History Surgical History History of bilateral breast reduction surgery (~12/2020) Family History Family History Mother Hypertension Grandparent Diabetes mellitus Father Diabetes mellitus Social History Social History Social History: Surrogate decision maker: Vika Kamara, mother. Code status: Full code. Smoking status: Never smoker Alcohol intake: never Substance use: never Additional living arrangements comments: The patient lives in [place]. 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 Exam Narrative: GENERAL: Well-appearing, well-nourished, and in no acute distress. HEAD: Normocephalic, atraumatic. EYES: EOMI. NECK: Supple. No JVD CHEST: Clear to auscultation. No respiratory distress. No wheezes rales or rhonchi HEART: Regular rate and rhythm. No murmur heard. Normal peripheral pulses. EXTREMITIES: Normal range of motion. No edema. SKIN: Warm, dry, no rash. NEURO: No focal deficits. Alert and oriented x3. PSYCH: Normal mood and affect Course Course Emergency Course: patient updated on workup. Reports relief with Toradol Vital Signs Vital signs: Vital Signs Temperature 97.2 F L 05/05/23 18:59 Pulse Rate 101 H 05/05/23 18:59 Respiratory Rate 20 05/05/23 18:59 Blood Pressure 161/114 H 05/05/23 18:59 Pulse Oximetry 100 05/05/23 18:59 Oxygen Delivery Room Air 05/05/23 18:59 Temperature 97.2 F L 05/05/23 18:59 Pulse Rate 93 05/06/23 01:37 Respiratory Rate 21 H 05/06/23 01:37 Blood Pressure 144/108 H 05/06/23 01:37 Pulse Oximetry 97 05/06/23 01:37 Oxygen Delivery Room Air 05/05/23 18:59 MDM - Recheck/Abnormal Lab/Rx MDM Narrative Medical decision making narrative: Patient presents to the emergency department for elevated blood pressure. Reporting some right-sided chest discomfort. Blood pressure elevated at 161 systolic on arrival, an this down trended without intervention. His recent blood pressure in the 140s systolic. She reports no diagnosis hypertension, although looking at all of her past vital signs her blood pressure is chronically elevated. CBC metabolic panel without concerning findings. Chest x-ray without acute cardiopulmonary abnormality. EKG without concerning changes and baseline troponin is negative. patient and workup. Reports relief with Toradol. She is instructed to continue monitoring her blood pressure at home and have close follow-up with her primary provider. She was given warnings to return to the ER Differential Diagnosis Differen
[2023-05-06 01:13] LABS: Alanine Aminotransferase 33 U/L (6-35); Albumin Level 4.4 g/dL (3.5-5.1); Alkaline Phosphatase 93 U/L (38-126); Anion Gap 10 mmol/L (8-16); Aspartate Amino Transferase 42 U/L (14-36); Bilirubin,Total 0.5 mg/dL (0.2-1.3); Blood Urea Nitrogen 8 mg/dL (7-17); Calcium 9.9 mg/dL (8.4-10.2); Carbon Dioxide 25 mmol/L (22-30); Chloride 104 mmol/L (98-107); Estimated CRCL calculation 88 ml/min; Estimated Glomerular Filt Rate > 60; Glucose 113 mg/dL (65-110); Sodium 139 mmol/L (137-145); Troponin I < 0.012 ng/mL (0.000-0.034)
[2023-05-06] MEDS: KETOROLAC 30 MG/ML VIAL (*BKC) IM (01:35)
[2023-05-06 01:37] VITALS: BP 144/108; PULSE 93; RESP 21; O2SAT 97
[2023-05-06 02:45] VITALS: BP 144/102; PULSE 80; RESP 19; O2SAT 99
[2023-05-06 02:58] VITALS: BP 141/110; PULSE 100; RESP 16; O2SAT 100
== END 2023-05-06 02:45 | disposition home or self-care (01) ==
PROVIDERS: Emergency Provider Physician Assistant; PCP Emergency Medicine
DX: R03.0 Elevated blood-pressure reading, without diagnosis of hypertension (principal); R00.0 Tachycardia, unspecified
CPT/HCPCS: 36415; 71046; 80053; 84484; 85025; 93005; 96372; 99284; J1885

== ENCOUNTER 2024-04-22 10:47 | Outpatient (CLI) | payer SELFPAY ==
[2024-04-22 12:10] LABS: Thyroid Stimulating Hormone 0.186 uIU/mL (0.465-4.680)
[2024-04-22 12:27] LABS: Free T4 Free Thyroxine 1.05 ng/mL (0.78-2.19)
== END 2024-04-22 10:48 | disposition home or self-care (01) ==
PROVIDERS: PCP Emergency Medicine; Visit Provider Internal Medicine
DX: E04.2 Nontoxic multinodular goiter (principal); R79.89 Other specified abnormal findings of blood chemistry; E05.90 Thyrotoxicosis, unspecified without thyrotoxic crisis or storm
CPT/HCPCS: 36415; 83519; 84439; 84443; 84445

== ENCOUNTER 2024-05-08 17:40 | Emergency (ER) | payer OTHER, SELFPAY ==
--- NOTE | ~2024-05-08 | CT_ITS ---
CT scan of the Neck Technique: 2.5 mm axial scans were obtained through the neck after intravenous administration of 75 c c Omnipaque 350. Coronal and sagittal reconstructions of the neck were obtained. Dose reduction techn ique was used on this scan by utilizing automated exposure control and iterative reconstruction techn ique. The dose-length product (DLP) was 417.21 mGy-cm. Clinical History: Right neck pain Findings: There is no evidence of any significant cervical lymphadenopathy. Several small, nonenlarged jugulo- digastric and posterior cervical lymph nodes are noted bilaterally. Parapharyngeal spaces appear norm al bilaterally. The parotid and submandibular glands appear normal. The pharyngeal mucosal spaces appear normal. No soft tissue masses are seen in the neck. The thyroid gland is enlarged with multiple nodules present. Images of the lung apices reveal no abno rmalities. Impression: Enlarged thyroid gland with multiple nodules. Thyroid ultrasound should be considered for further noman luation as indicated. Consider correlation with thyroid function tests as indicated. Reviewed, dictated and finalized at location . 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 Thyroid ultrasound should be cons idered for further evaluation as indicated. Consider correlation with thyroid f unction tests as indicated.
[2024-05-08 17:59] VITALS: BP 147/107; PULSE 93; RESP 18; TEMP 37.1; O2SAT 99
--- NOTE | 2024-05-08 18:47 | ECG_ITS ---
Test Date: 2024-05-08 18:53:42 Measurements Intervals New Point Rate: 94 P: 50 WY: 152 QRS: 11 QRSD: 98 T: 0 QT: 316 QTc: 395 Interpretive Statements SINUS RHYTHM INCOMPLETE RIGHT BUNDLE BRANCH BLOCK [90+ ms QRS DURATION, TERMINAL R IN V1/V2, 40+ ms S IN I/aVL/V4/V5/V6] NONSPECIFIC T-WAVE ABNORMALITY No previous ECG available for comparison Electronically Signed On 05-09-2024 12:46:16 NEUROPATHOLOGIST by Joon Galo M.D.
[2024-05-08 22:26] VITALS: BP 141/82; PULSE 78; RESP 14; O2SAT 97
[2024-05-08 22:41] LABS: Basophils Absolute Auto 0.1 K/mm3 (0.0-0.1); Basophils Percent Auto 0.9 % (0.2-1.2); Eosinophils Absolute Auto 0.3 K/mm3 (0-0.3); Eosinophils Percent Auto 2.6 % (0-4.4); Hematocrit 47.4 % (37.0-47.0); Hemoglobin 15.5 g/dL (12.0-15.0); Immature Granulocyte Absolute 0.03 K/mm3 (0.00-0.031); Immature Granulocyte Percent A 0.3 % (0-0.5); Lymphocytes Absolute Auto 4.31 K/mm3 (0.9-3.2); Lymphocytes Percent Auto 43.3 % (18.3-44.2); Mean Corpuscular HGB Conc 32.7 g/dl (32-36); Mean Corpuscular Hemoglobin 28.2 pg (26-34); Mean Corpuscular Volume 86.2 fl (80-100); Mean Platelet Volume 10.4 fl (7.4-10.4); Monocytes Absolute Auto 0.7 K/mm3 (0.1-0.6); Monocytes Percent Auto 7.3 % (2.6-8.5); Neutrophils Absolute Auto 4.5 K/mm3 (1.3-6.7); Neutrophils Percent Auto 45.6 % (45.5-73.1); Platelet Count Result 412 k/mm3 (150-375); Red Cell Distribution Width 13.1 % (11.5-14.5)
[2024-05-08 23:08] LABS: Estimated CRCL calculation 72 ml/min; Estimated Glomerular Filt Rate > 60
[2024-05-08 23:08] LABS: Alanine Aminotransferase 31 U/L (6-35); Albumin Level 4.8 g/dL (3.5-5.1); Alkaline Phosphatase 87 U/L (38-126); Anion Gap 10 mmol/L (4-12); Aspartate Amino Transferase 27 U/L (14-36); Bilirubin,Total 0.4 mg/dL (0.2-1.3); Blood Urea Nitrogen 10 mg/dL (7-17); Calcium 9.8 mg/dL (8.4-10.2); Carbon Dioxide 26 mmol/L (22-30); Chloride 105 mmol/L (98-107); Estimated CRCL calculation 87 ml/min; Estimated Glomerular Filt Rate > 60; Glucose 92 mg/dL (65-110); Potassium 3.9 mmol/L (3.4-5.0); Sodium 141 mmol/L (137-145)
[2024-05-08] MEDS: ACETAMINOPHEN 500 MG TABLET 1000 MG PO (23:21)
[2024-05-08] MEDS: KETOROLAC 15 MG/ML VIAL (*BKC) IV PUSH (23:21)
[2024-05-09 00:26] VITALS: BP 126/96; PULSE 82; RESP 14; TEMP 36.8; O2SAT 100
--- NOTE | 2024-05-09 01:40 | ED.GENADULT ---
HPI - General Adult General Chief complaint: Neck Pain/Injury Stated complaint: RIGHT neck pain radiating to arm Time Seen by Provider: 05/08/24 20:55 History of Present Illness HPI narrative: This is a 33-year-old female presenting with neck pain. Patient says she has sharp pain at the edge of her thyroid goiter. She says it radiates into her right arm and upper chest. She has the pain in her neck sharp but the pain in her arm is achy. No other symptoms such as difficulty swallowing breathing fevers productive cough or weakness. Patient is being worked up for thyroid nodules by her e d tech. Related Data Allergies Allergy/AdvReac Type Severity Reaction Status Date / Time No Known Allergies Allergy Unknown Verified 05/08/24 18:03 [facility] Past Medical History Medical History Polycystic ovarian syndrome Surgical History Surgical History History of bilateral breast reduction surgery (~12/2020) Family History Family History Mother Hypertension Grandparent Diabetes mellitus Father Diabetes mellitus Social History Social History Social History: Surrogate decision maker: Vika Kamara, mother. Code status: Full code. Smoking status: Never smoker Alcohol intake: never Substance use: never Do You Feel Safe in your Home?: Yes Lack of Transportation: No Lack of Food: Never True Current Housing: I Have Housing Concerned About Future Housing: No Difficulty Paying Gas/Electric Bills: No Difficulty Paying for Meds: No Currently Unemployed: No Education: Bachelor's Degree Difficulty w/ Childcare or Family Care: No Additional living arrangements comments: The patient lives in [place]. 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 Exam Narrative: APPEARANCE: No apparent distress. Head: atraumatic. EYES: EOMI, NOSE: Atraumatic NECK: Trachea midline Nontender thyroid mass RESPIRATORY: No increased rate of breathing, clear to auscultation CARDIOVASCULAR: RRR, no peripheral edema ABDOMINAL: Non-distended MUSCULOSKELETAl: No obvious deformities NEURO: Alert. Cranial nerves 2-12 grossly intact. Sensation light touch, motor function cerebellar function intact for 4 extremities. Gait exam was normal. SKIN:: Warm, dry. Normal color PSYCHIATRIC: Normal affect Course Vital Signs Vital signs: Vital Signs Temperature 98.7 F 05/08/24 17:59 Pulse Rate 93 05/08/24 17:59 Respiratory Rate 18 05/08/24 17:59 Blood Pressure 147/107 H 05/08/24 17:59 Pulse Oximetry 99 05/08/24 17:59 Oxygen Delivery Room Air 05/08/24 17:59 Temperature 98.2 F 05/09/24 00:26 Pulse Rate 82 05/09/24 00:26 Respiratory Rate 14 05/09/24 00:26 Blood Pressure 126/96 H 05/09/24 00:26 Pulse Oximetry 100 05/09/24 00:26 Oxygen Delivery Room Air 05/08/24 17:59 Medical Decision Making MDM Narrative Medical decision making narrative: -Course: 33-year-old female presenting with neck pain radiating down her arms. Patient is very anxious about her thyroid goiter believe that is causing her pain. Symptoms are really more consistent with cervical radiculopathy. However given her concerns we did obtain a CT the neck which redemonstrated the thyroid mass but no other findings. Patient has no other symptoms at this time is resting comfortably with stable vital signs. She is safe for discharge in outpatient follow-up. -DDX includes but is not limited to: cervical radiculopathy, muscle strain, thyroid goiter, thyrotoxicosis Vital Signs Vital Signs: Vital Signs Temperature 98.7 F 05/08/24 17:59 Pulse Rate 93 05/08/24 17:59 Respiratory Rate 18 05/08/24 17:59 Blood Pressure 147/107 H 05/08/24 17:59 Pulse Oximetry 99 05/08/24 17:59 Oxygen Delivery Room Air 05/08/24 17:59 Temperature 98.2 F 05/09/24 00:26 Pulse Rate 82 05/09/24 00:26 Respiratory Rate 14 05/09/24 00:26 Blood Pressure 126/96 H 05/09/24 00:26 Pulse Oximetry 100 05/09/24 00:26 Oxygen Delivery Room Air 05/08/24 17:59 Lab Data 05/08/24 22:35 05/08/24 23:07 Labs: Lab Results 05/08/24 05/08/24 Range/Units 22:35 23:07 WBC 10.0 (4.5-10.0) K/mm3 RBC 5.50 H (4.2-5.4) M/mm3 Hgb 15.5 H (12.0-15.0) g/dL Hct 47.4 H (37.0-47.0) % MCV 86.2 (80-100) fl MCH 28.2 (26-34) pg MCHC 32.7 (32-36) g/dl RDW 13.1 (11.5-14.5) % Plt Count 412 H (150-375) k/mm3 MPV 10.4 (7.4-10.4) fl Immature Gran % (Auto) 0.3 (0-0.5) % Neut % (Auto) 45.6 (45.5-73.1) % Lymph % (Auto) 43.3 (18.3-44.2) % [place] % (Auto) 7.3 (2.6-8.5) % Eos % (Auto) 2.6 (0-4.4) % Baso % (Auto) 0.9 (0.2-1.2) % Lymph # (Auto) 4.31 H (0.9-3.2) K/mm3 [place] # (Auto) 0.7 H (0.1-0.6) K/mm3 Eos # (Auto) 0.3 (0-0.3) K/mm3 Baso # (Auto) 0.1 (0.0-0.1) K/mm3 Abs Immat Gran (auto) 0.03 (0.00-0.031) K/mm3 Absolute Neuts (auto) 4.5 (1.3-6.7) K/mm3 Absolute Nucleated RBC 0.000 (0.0-0.012) K/mm3 Nucleated RBC % 0.0 (0.0-0.2) % Sodium 141 (137-145) mmol/L Potassium 3.9 (3.4-5.0) mmol/L Chloride 105 (98-107) mmol/L Carbon Dioxide 26 (22-30) mmol/L Anion Gap 10 (4-12) mmol/L BUN 10 (7-17) mg/dL Creatinine 0.90 1.10 (0.7-1.0) mg/dL Estim Creat Clear Calc 87 72 ml/min Estimated GFR > 60 > 60 (59 - ) Glucose 92 (65-110) mg/dL Calcium 9.8 (8.4-10.2) mg/dL Total Bilirubin 0.4 (0.2-1.3) mg/dL AST 27 (14-36) U/L ALT 31 (6-35) U/L Alkaline Phosphatase 87 (38-126) U/L Total Protein 9.0 H (6.3-8.2) g/dL Albumin 4.8 (3.5-5.1) g/dL Discharge Plan Discharge Clinical Impression: Multinodular goiter, Acute neck pain Patient Disposition: Home, Self-Care Condition: Stable Instructions: Antibiotic Form, Cervical Radiculopathy (ED) Additional Instructions: please use Motrin Tylenol for pain. Please continue working with her e d tech for evaluation your thyroid nodule. He can return any time if you develop fevers, difficulty breathing swallowing or any new or worsening symptoms. Prescriptions: New ibuprofen 800 mg tablet 800 mg PO TID PRN (Reason: pain) 7 Days Qty: 21 0RF acetaminophen 500 mg tablet 1,000 mg PO TID PRN (Reason: les) 7 Days Qty: 42 0RF Follow-up/Referrals: Nate Kerr MD [Primary Care Provider] -
== END 2024-05-09 01:52 | disposition home or self-care (01) ==
PROVIDERS: Emergency Provider Emergency Medicine; PCP Emergency Medicine
DX: M54.2 Cervicalgia (principal); E04.2 Nontoxic multinodular goiter
CPT/HCPCS: 36415; 70491; 80053; 85025; 93005; 96374; 99284; A9270; J1885; Q9967

== ENCOUNTER 2024-06-13 10:04 | Outpatient (CLI) | payer OTHER, SELFPAY ==
--- NOTE | ~2024-06-13 | US_ITS ---
EXAMINATION: 1. US FNA w image guidance 2. US FNA additional DATE: 06/13/2024 11:12 INDICATION: Bilateral thyroid nodules. TECHNIQUE: The procedure and its benefits and risks were discussed with the patient. Risks specifically discusse d included bleeding. The patient verbalized understanding of the risks and agreed to proceed. The nec k was prepped and draped in the usual sterile manner. 1% lidocaine was used for local anesthesia. 7 passes were made with a 25G needle into the lesion in the right thyroid lobe under ultrasound guidan ce. 6 passes were made with a 25-gauge needle into the lesion in left thyroid lobe under ultrasound amanda nce. There were no immediate complications. FINDINGS: Grayscale ultrasound images demonstrate needles advanced into a 4.3 cm nodule in right thyroid lobe f or biopsy. Grayscale ultrasound images demonstrate needles advanced into a 3.8 cm nodule in left thyr oid lobe IMPRESSION: 1. Ultrasound-guided fine needle aspiration of a nodule in right thyroid lobe. 2. Ultrasound-guided fine-needle aspiration of a nodule in left thyroid lobe. Reviewed, dictated and finalized at location A. 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 Ultrasound-guided fine needle aspiration of a nodule in right thyroid lobe. 2. Ultrasound-guided fine-needle aspiration of a nodule in left thyroid lobe.
--- NOTE | ~2024-06-13 | NM_ITS ---
EXAMINATION: NM thyroid scan w uptake DATE: 06/14/2024 12:59 INDICATION: Nontoxic multinodular goiter. COMPARISON: Neck CT 05/08/2024, ultrasound 06/13/2024 TECHNIQUE: 0.420 mCi I-123 was administered orally. Scintigraphic images of the thyroid gland were o btained at 24 hours. Thyroid uptake was calculated by the technologist. FINDINGS: The thyroid uptake is 16% (normal 10-30%), with the right lobe measuring 7% uptake and the left 9%. T here are hypoactive nodules in the thyroid bilaterally. IMPRESSION: 1. Normal 24-hour iodine uptake. 2. Hypoactive bilateral thyroid nodules. Biopsy results are pending. Reviewed, dictated and finalized at location A. N BUILDER
== END 2024-06-13 10:05 | disposition home or self-care (01) ==
PROVIDERS: PCP Emergency Medicine; Visit Provider Internal Medicine
DX: R79.89 Other specified abnormal findings of blood chemistry (principal); E04.2 Nontoxic multinodular goiter; I10 Essential (primary) hypertension
CPT/HCPCS: 10005; 10006; 78014; 88172; 88173; 88305; A9516

== ENCOUNTER 2024-08-25 13:29 | Outpatient (CLI) | payer OTHER, SELFPAY ==
[2024-08-25 14:15] LABS: Hematocrit 42.6 % (37.0-47.0); Hemoglobin 14.1 g/dL (12.0-15.0); Mean Corpuscular HGB Conc 33.1 g/dl (32-36); Mean Corpuscular Hemoglobin 28.1 pg (26-34); Mean Corpuscular Volume 84.9 fl (80-100); Mean Platelet Volume 10.6 fl (7.4-10.4); Platelet Count Result 340 k/mm3 (150-375); Red Blood Count 5.02 M/mm3 (4.2-5.4); Red Cell Distribution Width 12.9 % (11.5-14.5); White Blood Count 6.2 K/mm3 (4.5-10.0)
[2024-08-25 14:29] LABS: Alanine Aminotransferase 30 U/L (6-35); Albumin Level 4.7 g/dL (3.5-5.1); Alkaline Phosphatase 98 U/L (38-126); Anion Gap 11 mmol/L (4-12); Aspartate Amino Transferase 23 U/L (14-36); Bilirubin,Total 0.5 mg/dL (0.2-1.3); Blood Urea Nitrogen 8 mg/dL (7-17); Calcium 9.7 mg/dL (8.4-10.2); Carbon Dioxide 22 mmol/L (22-30); Chloride 105 mmol/L (98-107); Estimated Glomerular Filt Rate > 60; Glucose 101 mg/dL (65-110); Iron 64 ug/dL (37-170); Potassium 4.4 mmol/L (3.4-5.0); Sodium 138 mmol/L (137-145)
[2024-08-25 14:38] LABS: Percent Iron Saturation 19 % (20-50)
[2024-08-25 14:47] LABS: Free T4 Free Thyroxine 1.04 ng/dL (0.78-2.19)
--- OUTSIDE RECORDS SUMMARY | 2024-08-25 14:50 | XMS_ITS ---
Author Organization [facility] amrit Address [address] [address], [place] [address] Care Team Providers Care Concrete Worker Name Role Phone Cirilo BURK, Nate Primary Care Provider UnavailAngeles Gamez Unavailable [phone] zzzzMigration, zzzzProvider Unavailable Unav ailable Allergies No Known Allergies REASON FOR VISIT [facility] Medications Medication SIG (Take, Route, Frequency, Duration) Notes Start Date End Date Status Nextstellis 3 mg- 14.2 mg (28) take 1 tablet by oral route once daily oral 1 *Pick strength-form from [employer] for eRX* Active Encounters Encounter Location Date Provider Diagnosis [facility] [address] [address], [place] [address] 03/22/2023 zzzzProvider zzzzMigration Plan Of Treatment No Information Progress Notes * Jaren HAHNMaribellB:[birth year] (34 yo F)Acc No.[id number]:03/22/2023 Patient: Yadira ALANIS :1990 A ge:32 Y S ex:Female Phone: Address:[address] [place] [address], [phone] Subjective: * Chief Complaints: * E MR-Garcia * Medical History: * Surgical History: B reast reduction; 2022-06-23 * Hospitalization/Major Diagno stic Procedure: * Family History: M igrated Family History: Hypertension . * Social History: M igrated Social History: M igrated Social History: :: No Children , Exercise :: Minimal Amount of Exercise (Once weekly or less) :: note : 10/23/2020 - some weekends, Marital Status :: Single , Substance Use :: Alcohol-Does not give any significant history , Substance Use :: Tobacco :: Never. * Medications: T akingNextstellis 3 mg- 14.2 mg (28) tablet take 1 tablet by oral route once daily oral 1 , Notes to Pharmacist: *Pick strength-form from [employer] for eRX*Taking Nextstellis 3 mg- 14.2 mg (28) tablet take 1 tablet by oral route once daily oral 1 , Notes to Pharmacist: *[facility]* * Allergies: N .K.D.A.no[Allergies Verified] Objective: * Vitals: * Physical Examination: Assessment: Plan: * Treatment: * Procedure Codes: * true * Date: Generated for Adelaide verdin/Lizette/Piedad on: 0 08/25/2024 02:50 PM CDT
--- OUTSIDE RECORDS SUMMARY | 2024-08-25 14:50 | XMS_ITS | Continuity of Care Document ---
Author Organization [facility] Address [address] [place] [address] [place] [address] Phone Care Team Providers Care Tool Grinder Name Role Phone Nate Kerr MD Unavailable Unavailable Allergies, Adverse Reactions, Alerts Substance Reaction Status Criticality No Known Allergies Active No Inform ation Procedures Procedure Date OFFICE/OUTPATIENT VISIT, EST OFFICE/OUTPATIENT VISIT, EST OFFICE/OUTPATIENT VISIT, EST OFFICE/OUTPATIENT VISIT, EST PREV VISIT, EST, AGE 18-39 OFFICE/OUTPATIENT VISIT, EST OFFICE/OUTPATIENT VISIT, EST PREV VISIT, EST, AGE 18-39 OFFICE/OUTPATIENT VISIT, EST OFFICE/OUTPATIENT VISIT, EST PREV VISIT, EST, AGE 18-39 OFFICE/OUTPATIENT VISIT, EST OFFICE/OUTPATIENT VISIT, EST OFFICE/OUTPATIENT VISIT, EST PREV VISIT, EST, AGE 18-39 PREV VISIT, NEW, AGE 18-39 Advance Directives Directive Yes / No Effective Date File Name No Information Encounters Encounter Description Practice Location Reason(s) For Visit Diagnoses Date Provider Providers Copied on Encounter OFFICE/OUTPA TIENT VISIT, EST [facility], [address] [place], [address], [place] tel:[phone] [facility] Medicine thyroid (chief complaint) HTN (chief complaint) Thyroid noduleEssential (primary) hypertension 4 Cirilo Sullivan. [address], [place], [place], [address] , [place]. tel:[phone] OFFICE/OUTPA TIENT VISIT, EST [facility], [address], [place], [place], [address], [place] tel:[phone] [facility] tonsil1 (chief complaint) iron1 (chief complaint) thyroid nodule1 (chief complaint) Iron deficiencyThyroid noduleHypertrophy of tonsils 4 Cirilo Sullivan. [address], [place], [place], [address] , [place]. [phone] OFFICE/OUTPA TIENT VISIT, EST [facility], [address], [place], [place], [address], [place] tel:[phone] [facility] iron deficiency 1 (chief complaint) thyroid1 (chief complaint) platelet1 (chief complaint) glucose1 (chief complaint) period1 (chief complaint) MenorrhagiaIron deficiencyThyroid noduleEssential thrombocytosisAsymp tomatic microscopic hematuriaMetabolic syndrome 3 Cirilo Sullivan. [address], [place], [place], [address] , [place]. tel:[phone] OFFICE/OUTPA TIENT VISIT, EST [facility], [address] [place], [address], [place] tel:[phone] [facility] thyroid nodule (chief complaint) PCOS1 (chief complaint) platelet1 (chief complaint) fatigue1 (chief complaint) Essential thrombocytosisPolyc ystic ovarian syndromeThyroid noduleHirsutismRais ed antibody titer 3 Cirilo Sullivan. [address], [place], [place], [address] , [place]. tel:[phone] PREV VISIT, EST, AGE 18-39 [facility], [address] [place], [address], [place] tel:[phone] [facility] physical (chief complaint) Encounter for general adult medical exam w abnormal findingsMetabolic syndromePolycystic ovarian syndromeDisorder of thyroid, unspecifiedEssentia l thrombocytosisHemat uria 2 Cirilo Sullivan. [address] [place], [place], [address] , [place]. tel:[phone] OFFICE/OUTPA TIENT VISIT, EST [facility], [address] [place], [address], [place] tel:[phone] [facility] ANA1 (chief complaint) metabolic1 (chief complaint) hematuria1 (chief complaint) thyroid1 (chief complaint) platelet1 (chief complaint) Metabolic syndromePolycystic ovarian syndromeRaised antibody titerEssential thrombocytosisDisor amara of thyroid, unspecifiedHematuri a 1 Cirilo Dennis [address] [facility] [place], [address] , [place]. tel:[phone] PREV VISIT, EST, AGE 18-39 [facility], [address] [place], [address], [place] tel:[phone] [facility] physical (chief complaint) Encounter for general adult medical exam w abnormal findingsMetabolic syndromeHirsutismPo lycystic ovarian syndromeMigraineRai sed antibody titer 0 1 Cirilo [facility] [facility] [place] [address] , [place]. tel:[phone] OFFICE/OUTPA TIENT VISIT, EST [facility], [address] [place], [address], [place] tel:[phone] [facility] headache1 (chief complaint) NOVA (chief complaint) PCOS (chief complaint) preDM (chief complaint) Metabolic syndromeHirsutismMi grainePolycystic ovarian syndromeRaised antibody titer 0 9 Cirilo Dennis [address] [facility] [place], [address] , [place]. tel:[phone] Referring Provider: Froilan Fuentes [place], [address]. tel:[phone] PREV VISIT, EST, AGE 18-39 [facility], [address], [place], [place], [address], [place] tel:[phone] [facility] PHysical (chief complaint) Encntr for general adult medical exam w/o abnormal findings 9 Cirilo Sullivan. [address], [place], [place], [address] , [place]. tel:[phone] Referring Provider: Froilan Fuentes [address], [place], [place], [address]. tel:[phone] OFFICE/OUTPA TIENT VISIT, [facility], [address], [place], [place], [address], [place] tel:[phone] [facility] CRP (chief complaint) faial hair1 (chief complaint) headche1 (chief complaint) thrombocyt osis1 (chief complaint) HTN (chief complaint) Qualitative platelet defectElevated ESRHirsutismEssenti al (primary) hypertension 8 Cirilo Sullivan. [address], [place], [place], [address] , [place]. [phone] Referring Provider: Froilan Fuentes [address], [place], [place], [address]. tel:[phone] OFFICE/OUTPA TIENT VISIT, [facility], [address], [place], [place], [address], [place] tel:[phone] [facility] heaache1 (chief complaint) acanthasis nigrans (chief complaint) platelet (chief complaint) Acanthosis nigricansAbnormalit y of globulinQualitative platelet defectMigraine 8 Cirilo Sullivan. [address], [place], [place], [address] , [place]. tel:[phone] Referring Provider: Froilan Fuentes [address], [place], [place], [address]. tel:[phone] OFFICE/OUTPA TIENT VISIT, [facility], [address], [place], [place], [address], tel:[phone] [facility] Medicine insulin (chief complaint) platelet (chief complaint) proteinrui a (chief complaint) Acanthosis nigricansMetabolic syndromeAbnormality of globulinQualitative platelet defect 7 Cirilo Dennis [address], [place], [place], [address] , [place]. [phone] Referring Provider: Froilan Fuentes [address], [place], [place], [address]. tel:[phone] PREV VISIT, EST, AGE 18-39 [facility], [address], [place], [place], [address], [place] tel:[phone] [facility] PHysical (chief complaint) Encntr for general adult medical exam w/o abnormal findings 7 Cirilo Dennis [address], [place], [place], [address] , [place]. tel:[phone] Referring Provider: Froilan Fuentes [address], [place], [place], [address]. tel:[phone] PREV VISIT, NEW, AGE 18-39 [facility], [address], [place], [place], [address], [place] tel:[phone] [facility] Physical (chief complaint) Dietary surveillance and counselingRoutine Medical ExamRoutine Medical Exam 4 Cirilo Mc[address], [place], [place], [address] , [place]. tel:[phone] Family History Family Member Type Diagnosis Age At Onset Brother Problem (finding) Alive and well Father Problem (finding) Alive and well Mother Problem (finding) Hypertension Payers Payer name Insurance type Covered constitution party ID Authoriza tion(s) No Information Social History Type Description Quantity Date Captured Comments Alcohol Use Details No Caffeine Use Details Unknown Tobacco Use Status Never smoked tobacco 2023 Smoking Status Never smoker Sex Female Vital Signs Date / Time: Height Weight BMI Pulse Rate Blood Pressure Temperature Respiratory Rate Body Surface Area Head Circumference BMI percentile Pulse Ox Inhaled Ox 11:55 AM 64.00 in 217.40 lbs 37.3 2 kg/m eter (2) 91 /min 140/96 mm[Hg] 98.4 F 16 /min Chief Complaint And Reason For Visit From encounter dated '11/03/2023 11:51'. thyroid (chief complaint). Description: Pt has history of thyroid nodule and she had inconclusive biopsy last year. Pt saw endo last March and she suppose to have repeat biopsy and also repeat TFTsPt has not done any of above .Pt states that the endo never called her for the biopsy. Pt states that she notices enlargement of the right thyroid recently and some breathing difficulty due to enlargement of the thyroid and she also notices some hoarseness. Pt denies any drooling. Pt denies any dysphagia HTN (chief complaint). Description: Pt has mild HTn today. Pt denies any chest pain or headache Plan Of Treatment Date Type Action Status Referral Ordered: Otolaryngology (related to Hypertrophy of tonsils) ordered Referral Ordered: Referrals: Otolaryngology. Evaluate and treat ordered Referral Ordered: Hematology (related to Iron deficiency) ordered Referral Ordered: Gynecology (related to Menorrhagia) ordered Referral Ordered: Tae Mackenzie -[facility] Phys[facility] : Internal Medicine : Endocrinology, Diabetes & Metabolism (related to Thyroid nodule) ordered Referral Referred To: Tae Mackenzie [address] [facility]
[address] [place], [place] [id number] Ordered: Referrals: Allopathic & Osteopathic Physicians : Internal Medicine : Endocrinology, Diabetes & Metabolism. Tae Mackenzie. Evaluate and treat ordered Referral Ordered: US GUIDANCE ordered Referral Ordered: Referrals: Gynecology. Evaluate and treat ordered Referral Ordered: US THYROID ordered Referral Referred To: Angeles Jeff MD [address] [facility]
[address] [place], [place], [address] Ordered: Referrals: Angeles Jeff MD. Evaluate and treat ordered Referral Ordered: Sabino Rees -[facility] : Internal Medicine : Rheumatology (related to Raised antibody titer) ordered Referral Referred To: Sabino Rees [address] [place], [place], [phone] Ordered: Referrals: Allopathic & Osteopathic Physicians : Internal Medicine : Rheumatology. Sabino Rees. Evaluate and treat ordered Referral Ordered: [place], PELVIC (NONOBSTETRIC); ordered Referral Ordered: Christiano Siegel (related to Hirsutism) ordered Referral Ordered: Hematology (related to Qualitative platelet defect) ordered Referral Ordered: Referrals: Hematology. Evaluate and treat ordered Referral Referred To: Christiano Siegel [address] [place], [place] [id number] Ordered: Referrals: Christiano Siegel. Evaluate and treat ordered Referral Ordered: Referral: Plastic Surg. ordered History Of Present Illness Encounter Date Complaint History Of Prese nt Illness thyroid Pt has history o f thyroid nodule and she had inconclusive biopsy last year. Pt saw endo last March and she suppose to have repeat biopsy and also repeat TFTs Pt has not done any of above .Pt states that the endo never called her for the biopsy. Pt states that she notices enlargement of the right thyroid recently and some breathing difficulty due to enlargement of the thyroid and she also notices some hoarseness. Pt denies any drooling. Pt denies any dysphagia HTN Pt has mild HTn today. Pt denies any chest pain or headache tonsil1 Pt has intermitt ent tonsil swelling for the past year and she notices intermittent sore throat along with swelling with mild dysphagia Pt denies any drooling pt states that it swelled up 2-3 times last year with negative strep swab Pt c/o acute tonsil swelling last week with negative strep swab last week which was normal Pt is not on abx now Pt denies any fever, stiff neck. Pt denies any drooling. iron1 Pt has low iron due to heavy period Pt has IUD now .Pt is seeing hematology and she received iron infusion and her iron was better recently by hematology thyroid nodule1 Pt has thyroid n odule Pt is seeing endo now and she had two inconclusive biopsy and she will do right nodule biopsy again soon her thyroid biopsy on left side was ok per patient glucose1 Pt has normal gl ucose and borderline high a1c . pt denies any polyuria ,polydipsia. period1 Pt has PCOS with heavy period. Pt has regular period but is very heavy P tis seeing DAIRY HUSBANDMAN but no pelvic ultrasound was ordered and no lab checked by DAIRY HUSBANDMAN and she is only told to take OCPs, which is not helping with her heavy period .Pt does have mild hirsutism iron deficiency1 Pt has iron def iciency. Pt has low MCV. Pt is not anemic. Pt denies any GI bleeding Pt does have very heavy period. Pt c/o fatigue Pt denies any sob platelet1 Pt has mildly hi gh platelet Pt denies any bruising or bleeding thyroid1 Pt has slightly suppressed TSh. Her TPO is ok TSI pending Pt has thyroid nodule.. pt denies any dysphagia or neck pain thyroid nodule Risk factors for thyroid nodule include being 20 to 60 years of age and female. Additional information: Pt notices nontender right thyroid nodule for several months Pt denies any dysphagia or neck pain. Pt has history of elevated thyroid Pt never had repeat TFT done. Pt denies any palpitation and chest pain. PCOS1 Pt has PCOS with hirsutism. Pt is not taking metformin and spironolactone. Pt is seeing can patcher and she is on OCP now but her period is still irregular and she still has hirsutism. Pt is noncompliant with metformin and spironolactone platelet1 Pt has high plat elet .Pt denies any GI bleeding Pt does have heavy period . fatigue1 Pt c/o chronic f atigue Pt feels very tired all the time Pt feels tired throughout the day and in the afternoon pt has to take nap during the day physical Pt needs annual physical Pt is s/p bilateral breast reduction surgery and she states that her tension headache resolved Pt also saw rheumatology and was told no lupus or any connective tissue disease . Pt has insulin resistance and PCOS. Pt is noncompliant with metformin and spironolactone and she stopped above for long time and she just restarted them again last month. Pt states that she lost some weight after breast reduction surgery so her period was regulated but she gained all her weight back. Pt states that her period is still regular now . Pt overall feels fine. Pt still has mild hirsutism . ANA1 pt has positive Nova. CRP and ESR Pt vikash any joint pain or rash thyroid1 Pt has slightly suppressed TSH. her T4 is ok Pt denies any dysphagia or neck pain. Pt denies any thyroid nodule or any chest pain, palpitation hematuria1 Pt has mild marlyn turia Pt denies any UTI symptoms pt was on her period during last lab drawn platelet1 Pt has high plat elet .Pt denies any bruising or bleeding metabolic Pt has mild insu sera resistance with hirsutism with PCOS. Pt denies any polyuria, polydipsia. Pt has high T . Pt denies any pelvic pain Pt used to take metformin and spironolactone which regulated her period and hirsutism but she did not keep up with meds. Pt does have irregular period physical Pt needs annual physical. Pt has high T and hirsutism. Pt has PCOS. Pt states that she is still taking spironolactone and metformin but not sure who is giving to her. pt has not had lab done for over one year. Pt has 34 H breast and she has some midback pain sometimes. Pt is seeing breast specialist who is considering breast reduction surgery soon. Pt was told to get order for PT for midback pain from me. Pt has positive Nova and CPR. Pt denies any joint pain. Pt is prediabetic. Pt denies any polyuria, polydipsia. Pt never followed up with emergency medical technician/driver. preDM Pt is insulin re sistance. pt denies any polyuria, polydipsia. Pt denies any neuropathy PCOS Additional infor mation: Pt has ultrasound confirmed PCOS Pt has irregular period Pt denies ay pelvic pain. Pt has high T,. headache1 Pt has not had a ny headache since taking topamax. NOVA Pt has positive NOVA. Pt has elevated CRP pt denies any joint pain PHysical pt needs annual physical Pt has rather complicated medical issue pt has frequent amenorrhea, Pt has not had period for two months Pt has hirsutism. Her hormone work up was negative last year. Pt did not follow up with endo Pt did see hematology and she was told to take some oral irons. Pt did not follow up with hematology pt also c/o recurrent headache again since 6 months Pt denies any head injury ,Pt denies waking up at night with headache Pt has headache about twice per week. 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 Pt currently is not on OCP. Pt states that her DAIRY HUSBANDMAN did put her on OCP which did help with her period a while back. faial hair1 Pt has excessive facial hair. Her T level is ok. Her 24 hour urine corstine is ok. Pt does have signs of insulin resistance. Pt also has acanthasis nigrans her A1c is borderline headche1 Pt has intermitt ent migriane headache, throbbing only during pierod. Pt denies any head injury. pt denies any wrosenign headache .Pt has not gotten a chance to use imitrex yet. Pt denies any acute headachce CRP Pt has high CRP. ESr.. pt denies any joint pian. thrombocytosis1 Pt has high plat elet count. Pt denies any bleeding issue. Her LFT is ok, Her iron panel is ok. Pt denies any abd pain or any jaundice HTN Pt has mild HTN today. Pt denies any chest les. Pt denies any acute headache acanthasis nigrans Pt has acanth asis nigrans. Pt never did the 24 hour urine cortisone. Pt has been tyring diet and exersing for weight loss. heaache1 Pt has chronic m igraine heaache Pt has throbbing headache with nausea and photophobia almost 1-2 per months, especially around period. pt has been having headahce for many years. Pt denies any head injury. Pt denies waking up at night with headache. Pt states that recenltythe headache has been worse. Pt states that usually headache goes away with rest but recenlty the heaeache has not improved with rest Pt denies any acute headache. Pt notices mild numbness around finger with headache platelet Pt has high plat elet and high globulin and protein during recent lab. insulin Pt has mild high A1c. Pt has signs of insulin resistance. Pt has facial hair and also acahtosis nigans. Pt states that her period is regular. Pt denies any amenorrhea. Pt is overweight. Pt denies any polyuria, polydipsia platelet Pt has mild high platelet Pt denies any bruising or clotting proteinruia Pt has mild high proteinuria and globuin on lab. PHysical Pt needs annual physical. Pt c/o sore throat, mild coughing, loss of voice, mild fatigue for 2 weeks. Pt has trouble with swallowing due to pain. Pt denies any fever, headache. sick contact. Pt denies any nausea, vomiting, diarrhea Instructions Date Instruction Additional Infor mation Prescribed Activity and Exercise Education Related to Dietary Surveillance and Counseling Prescribed Diet Educ ation/Lifestyle Education Regarding Diet Related to Dietary Surveillance and Counseling Weight management Related to Gianfranco litative platelet defect Prescribed Activity and Exercise Education Related to Dietary Surveillance and Counseling Prescribed Diet Educ ation/Lifestyle Education Regarding Diet Related to Dietary Surveillance and Counseling Weight management Related to Olvin nthosis nigricans Increase physical activity Relat ed to Acanthosis nigricans Prescribed Diet Educ ation/Lifestyle Education Regarding Diet Related to Dietary Surveillance and Counseling Prescribed Activity and Exercise Education Related to Dietary Surveillance and Counseling Prescribed Activity and Exercise Education Related to Dietary Surveillance and Counseling Prescribed Diet Educ ation/Lifestyle Education Regarding Diet Related to Dietary Surveillance and Counseling Decrease caloric intake Related to Dietary surveillance counseling Dietary counseling Related to Di etary surveillance counseling Assessments Type Assessment Date assessment Thyroid nodule assessment Essential (primary) hypertension Mental Status Date Cognitive Assessment Orientation - [place] ed to time, place, person, situation.
--- OUTSIDE RECORDS SUMMARY | 2024-08-25 14:50 | XMS_ITS ---
Author Organization [facility] Address [address] [place] [address] Care Team Providers Care Loader Magazine Grinder Name Role Phone Cirilo BURK, Nate Primary Care Provider Unavailabl Angeles Knutson [phone] REASON FOR VISIT yd/12 month follow up/flc Encounters Encounter Location Date Provider Diagnosis [facility] [address] [facility] [address] [place] [address] 06/23/2023 Angeles Gonzalez Plan Of Treatment No Information Progress Notes * Jaren HAHNaDOB:[birth year] (33 yo F)Acc No.[id number]:06/23/2023 Progress Notes Patient: Yadira ALANIS Provider: Danyell GONZALEZ MD :1990 A ge:32 Y S ex:Female Date:06/23/2023 Phone: Address:[address] [place], [place] [phone] Pcp:Nate Kerr MD Subjective: * Chief Complaints: * 1 . Yd/12 month follow up/flc. * Medical History: Objective: * Vitals: Assessment: Plan: * Treatment: * Procedure Codes: N OSHW No Show Charge * Billing Information: * Visit Code: * Procedure Codes: NOSHW No Show Charge. * Sign off status: Completed true * Provider: Danyell GONZALEZ MD Date: 0 06/23/2023 Generated for Printi ng/Faxing/eTransmitting on: 0 08/25/2024 02:49 PM CDT
--- OUTSIDE RECORDS SUMMARY | 2024-08-25 14:50 | XMS_ITS | Continuity of Care Document ---
Author Organization [facility] Address [address] [facility] [facility] [address] [place] [address] Phone Care Team Providers Care Certified Nursing Assistant Instructor Name Role Phone Perez OD, Lauri Unavailable Unavailable Advance Directives Directive Yes / No Effective Date File Name No Information Encounters Encounter Description Practice Location Reason(s) For Visit Diagnoses Date Provider Providers Copied on Encounter [facility], [address], [place], [place], [address], [place] tel:[phone] SEC [facility] No Information Dec-0 3-199 9 Perez OD Lauri. [address] [facility] , [address], [place], [address], [place]. tel:[phone] Family History Family Member Type Diagnosis Age At Onset No Information Payers Payer name Insurance type Covered alliance party ID Authoriza tion(s) Medicaid [facility] [id number] Social History Type Description Quantity Date Captured Comments Sex Female Smoking Status No Information Chief Complaint And Reason For Visit No Information Reason For Referral Reason For Referral No Information History Of Present Illness Encounter Date Complaint History Of Prese nt Illness No Information Functional Status Date Functional Assessmen t No Information Instructions Date Instruction Additional Infor mation No Information Assessments Type Assessment Date No Information Patient Care Teams Name Effective Dates (start - stop) Status Members No Information
--- OUTSIDE RECORDS SUMMARY | 2024-08-25 14:50 | XMS_ITS | Clinical Summary ---
Author Organization [facility] Address [address], [facility] [address] [place] [address] Phone Care Team Providers Care Linux Vmware Administrator Name Role Phone Nate Kerr Primary Care Provider [phone] Lauri Ding MD Unavailable [phone] Allergies No known active allergies Medications levonorgestrel (Mirena, 52 MG,) 20 MCG/DAY IUD Take 1 device by intrauterine route. 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 Encounters Date Type Department Care Team Description 06/08/2024 10:45 AM BOILERMAKER HELPER Office Visit [facility] [address] [phone] Chrissy Frank, HOME CARE RN, MECHANICAL TECHNICIAN Iron deficiency anemia due to chronic blood loss (Primary Dx); Thrombocytosis 06/08/2024 10:30 AM BOILERMAKER HELPER Lab [facility] [address] [phone] Lab, Cc [place] Iron deficiency anemia due to sideropenic dysphagia 06/08/2024 Telephone [facility] [address] [phone] Chrissy Frank APRN, MECHANICAL TECHNICIAN 06/08/2024 Travel from Last 3 Months Family History Medical History Relation Name Comments Hypertension Maternal Grandmother Hypertension Mother Diabetes Paternal Grandfather Diabetes Paternal Grandmother Diabetes Paternal Uncle Hypertension Sister Relation Name Status Comments Maternal Grandmother Mother Paternal Grandfather Paternal Grandmother Paternal Uncle Sister Social History Tobacco Use Types Packs/Day Years Used Date Smoking Tobacco: Never Smokeless Tobacco: Never Tobacco Cessation:Counseling Given: Not Answered Alcohol Use Standard Drinks/Week Comments Yes 0 (1 standard drink = 0.6 oz pur e alcohol) every 2 weeks Comments No Sex and Gender Information Value Date Recorded Sex Assigned at Not on file Legal Sex Female 2:06 PM BOILERMAKER HELPER Gender Identity Not on file Sexual Orientation Not on file Last Filed Vital Signs Vital Sign Reading Time Taken Comments Blood Pressure 136/84 06/08/2024 10:57 AM BOILERMAKER HELPER Pulse 104 06/08/2024 10:57 AM BOILERMAKER HELPER Temperature 36.7 C (98 F) 06/08/2024 10:57 AM BOILERMAKER HELPER Respiratory Rate 18 06/08/2024 10:57 AM BOILERMAKER HELPER Oxygen Saturation 96% 06/08/2024 10:57 AM BOILERMAKER HELPER Inhaled Oxygen Concentration - - Weight 99.9 kg (220 lb 4.8 oz) 06/08/2024 10:57 AM BOILERMAKER HELPER Height 162.6 cm (5' 4 ) 06/08/2024 10:57 AM BOILERMAKER HELPER Body Mass Index 37.81 06/08/2024 10:57 AM BOILERMAKER HELPER Plan of Treatment Upcoming Encounters Date Type Department Care Team (Late st Contact Info) Description 12/07/2024 10:30 AM CDT Lab [facility] [address] [phone] Lab, Cc [facility] 12/07/2024 10:45 AM CDT Office Visit [facility] [address] [phone] Lauri Ding MD [address] [place] [phone] Health Maintenance Due Date Last Done Comments Hepatitis C Virus (HCV) Screening 1988 TdaP Immunization 1988 Hepatitis B Immunization (1 of 3 - 19+ 3-dose series) 2007 Pap Smear 2009 Cervical Cancer Screening (CCS) 2018 HPV/Cotest 2018 Influenza Immunization (#1) 2024 SARS-COV-2 Immunization ( season) 2024 Respiratory Syncytial Virus (RSV) Immunization (Adult) (1 - 1-dose 75+ series) 2063 Meningococcal Immunization (ACWY) Aged Out No longer eligible based on patient's age to complete this topic Pneumococcal Immunization Combined Aged Out No longer eligible based on patient's age to complete this topic Rotavirus Immunization Aged Out No lo nger eligible based on patient's age to complete this topic Procedures Procedure Name Priority Date/Time Associated Diagnosis Comments CBC WITH AUTO DIFF OH Routine 06/08/2024 10:41 AM BOILERMAKER HELPER CMP (COMPREHENSIVE METABOLIC PANEL) Routine 06/08/2024 10:41 AM BOILERMAKER HELPER Iron deficiency anemia due to sideropenic dysphagia FERRITIN Routine 06/08/2024 10:41 AM BOILERMAKER HELPER Iron deficiency anemia due to sideropenic dysphagia IRON W/ IRON BINDING CAPACITY OH Routine 06/08/2024 10:41 AM BOILERMAKER HELPER Iron deficiency anemia due to sideropenic dysphagia RETICULOCYTE COUNT (RETIC) Routine 06/08/2024 10:41 AM BOILERMAKER HELPER Iron deficiency anemia due to sideropenic dysphagia from Last 3 Months Results * (ABNORMAL) IRON W/ IRON BINDING CAPACITY OH (06/08/2024 10:41 AM BOILERMAKER HELPER) IRON 49(L) 50 - 212 ug/dL [facility] UIBC 308 155 - 355 ug/dL [facility] TIBC 357 261 - 478 ug/dl [facility] % Saturation 14(L) 20 - 50 % [facility] 06/08/2024 10:4 1 AM BOILERMAKER HELPER Narrative [facility] - 06/08/2024 11:24 AM BOILERMAKER HELPER Release to patient->Immediate Clemencia Garvey HOME CARE RN, MECHANICAL TECHNICIAN LAB SEND OUTS F inal Result [facility] [place] [address], * (ABNORMAL) CBC WITH AUTO DIFF OH (06/08/2024 10:41 AM BOILERMAKER HELPER) WBC 9.9 4.0 - 10.0 10*3/uL [facility] HGB 14.7 11.2 - 15.7 g/dL [facility] HCT 43.8 34.1 - 44.9 % [facility] PLT 388(H) 163 - 369 10*3/uL [facility] MPV 10.3 9.4 - 12.4 fL [facility] RBC 5.18 3.93 - 5.22 10*6/uL [facility] MCV 85 79 - 95 fL [facility] MCH 28.4 25.6 - 32.2 pg [facility] MCHC 33.6 32.2 - 36.5 g/dL [facility] RDW 12.6 11.6 - 14.4 % [facility] Neutrophils % 66.1(H) 36.0 - 66.0 % [facility] Lymphocytes % 24.5 19.0 - 40.0 % [facility] Monocytes % 6.4 4.1 - 12.1 % [facility] Eosinophils % 1.8 0.0 - 3.5 % [facility] Basophils % 0.8 0.0 - 1.0 % [facility] Absolute Neutrophils 6.5 1.4 - 6.6 10*3/uL [facility] Absolute Lymphocytes 2.4 0.8 - 4.0 10*3/uL [facility] Absolute Monocytes 0.6 0.2 - 1.2 10*3/uL [facility] Absolute Eosinophils 0.2 0.0 - 0.4 10*3/uL [facility] Absolute Basophils 0.1 0.0 - 0.1 10*3/uL [facility] 06/08/2024 10:4 1 AM BOILERMAKER HELPER Clemencia Garvey APRN, CNP LAB SEND OUTS F inal Result Performing Organization Address [facility]/ZIP Co de Phone Number [facility] [address] [place] [address] [place] [address], [place] [phone] * (ABNORMAL) RETICULOCYTE COUNT (RETIC) (06/08/2024 10:41 AM BOILERMAKER HELPER) Reticulocyte count 2.27(H) 0.50 - 1.70 % [facility] RET-He 31.80 28.20 - 36.60 pg [facility] Comment: RET-He is a direct assessment of incorporation of iron into erythrocyte hemoglobin. It provides an indirect measure of the iron available for new erythropoiesis over past 2-4 days. Blood 06/08/2024 10:4 1 AM BOILERMAKER HELPER Narrative [facility] - 06/08/2024 10:56 AM BOILERMAKER HELPER Release to patient->Immediate Clemencia Garvey APRN, CNP HEMATOLOGY ORDERA BLES Final Result Performing Organization Address [facility] Co de Phone Number [facility] [address] [address], [place] [phone] * FERRITIN (06/08/2024 10:41 AM BOILERMAKER HELPER) Pathologist [facility] Ferritin 116 11 - 307 ng/mL [facility] Blood 06/08/2024 10:4 1 AM BOILERMAKER HELPER Narrative [facility] - 06/09/2024 2:52 PM BOILERMAKER HELPER Release to patient->Immediate Clemencia Garvey APRN, CNP CHEMISTRY ORDERAB LES Final Result Performing Organization Address [facility]/ZIP Co de Phone Number [facility] [place] [address] [place] [address], [place] [phone] * CMP (COMPREHENSIVE METABOLIC PANEL) (06/08/2024 10:41 AM BOILERMAKER HELPER) Glucose 103 70 - 105 mg/dL [facility] Blood Urea Nitrogen 11 7 - 25 mg/dL [facility] Creatinine 1.0 0.6 - 1.2 mg/dL [facility] Sodium 139 136 - 145 mEq/L [facility] Potassium 4.4 3.5 - 5.1 mEq/L [facility] Chloride 103 98 - 107 mEq/L [facility] Bicarbonate 28 21 - 31 mEq/L [facility] Total Bilirubin 0.5 0.3 - 1.0 mg/dL [facility] Alk. Phosphatase 75 34 - 104 U/L [facility] Aspartate Aminotransferase 15 13 - 39 U/L [facility] Alanine Aminotransferase 22 7 - 52 U/L [facility] Total Protein 8.0 6.4 - 8.9 g/dL [facility] Albumin 4.6 3.5 - 5.7 g/dL [facility] Calcium 9.8 8.6 - 10.3 mg/dL [facility] Anion Gap 12.4 7.0 - 15.0 mEq/L [facility] Globulin 3.4 2.0 - 3.5 g/dL [facility] EGFR 75 >60 ml/min/1. 73m2 [facility] Comment: This eGFR is calculated using 2020 CKD-EPI Creatinine equation without race modifier based on the NKF-ASN task force recommendations Blood 06/08/2024 10:4 1 AM BOILERMAKER HELPER Narrative [facility] - 06/08/2024 11:24 AM BOILERMAKER HELPER Release to patient->Immediate IS THE PATIENT REQUIRED TO BE FASTING FOR 8 HOURS?->No us Clemencia Garvey HOME CARE RN, MECHANICAL TECHNICIAN CHEMISTRY ORDERAB LES Final Result [facility] [place] [address], from Last 3 Months Insurance [facility] Care Teams Linux Vmware Administrator Relationship Specialty Start Date End Date Nate Kerr [address] [place] [address] PCP - General Family Medicine 07/24/17 Lauri Dign MD [address] [place] [phone] Consulting Physician Oncology 12/15/22
--- OUTSIDE RECORDS SUMMARY | 2024-08-25 14:50 | XMS_ITS | Clinical Summary ---
Author Organization [facility] Address [address] [place] [address] Care Team Providers Care Cultural Centre Manager Name Role Phone Nate Krer MD Primary Care Provider [phone] [facility],non-owned Affiliates and Associated Physician Practices is amultiple site organization consisting of ambulatory clinics and hospital sitesin [place], [place], [place] and [place]. This disclosure is being madepursuant to the Care Everywhere program and may not contain all information available regarding this patient. Last updated 18.[employer] [facility] Allergies No known active allergies Medications * Be aware that medications may not be up to date on this document. Alwaysverify current medications with the patient. Medication Sig Dispensed Refills Start Date End Date Status metFORMIN (GLUCOPHAGE) 500 MG tablet TK 1 T PO BID WITH THE MORNING AND BASHIR MEAL 03/13/2020 Active spironolactone (ALDACTONE) 50 MG tablet Take 1 (one) tablet by mouth as needed 12/15/2019 Active topiramate (TOPAMAX SPRINKLE) 25 MG capsule Take 25 mg by mouth 2 times daily Active oxyCODONE, immediate release, (Roxicodone) 5 MG tabletIndications: Thyroid nodule Take 1 (one) tablet by mouth every 4 hours as needed for Pain 12 tablet 07/21/2024 Active Additional Information Patient not taking.Reported on 08/17/2024 ibuprofen (Motrin) 600 MG tablet Take 1 (one) tablet by mouth every 6 hours as needed for Pain 30 tablet 07/21/2024 Active acetaminophen (Tylenol) 325 MG tablet Take 2 (two) tablets by mouth every 6 hours as needed for Fever or Pain Maximum allowable Acetaminophen amount = 4 Grams (4000 mg) / 24 hours. 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 Snoring Overview (07/07/2024): worse since thyroid enlargement Resolved Problems Problem Noted Date Diagnosed Date Resolved Date Macromastia 12/21/2020 07/09/2021 Encounters Date Type Department Care Team Description 08/22/2024 Telephone [facility] - ENT [address] [place] [phone] Pedro Bazzi MD Forms/questionnaires 08/17/2024 2:30 PM CDT Office Visit [facility] - ENT [address] [place] [phone] Pedro Bazzi MD Thyroid nodule (Primary Dx); H/O partial thyroidectomy 08/17/2024 Travel 07/28/2024 Telephone [facility] - ENT [address] [place] [phone] Horn, Maureen Question 07/27/2024 3:55 AM [facility] - 07/27/2024 6:32 AM [facility] Emergency [facility] [address] [place] [phone] Ruth Mendoza MD Elevated blood pressure reading (Primary Dx); Acute nonintractable headache, unspecified headache type; Status post partial thyroidectomy Discharge Disposition: Home or Self Care 07/26/2024 Travel 07/21/2024 7:23 AM [facility] Anesthesia Event [facility] [address] [place] [address] Chantel Berrios MD Brown, Gina F, MD 07/21/2024 7:05 AM LABORATORY ASSISTANT - 07/21/2024 11:20 AM LABORATORY ASSISTANT Surgery [facility] [address] [place] [address] Pedro Bazzi MD left thyroid lobectomy 07/21/2024 5:42 AM LABORATORY ASSISTANT - 07/22/2024 11:55 AM LABORATORY ASSISTANT Hospital Encounter [facility] [address] [place] [address] Pedro Bazzi MD Surgery General Discharge Disposition: Home or Self Care 07/21/2024 Travel 2024 9:00 AM LABORATORY ASSISTANT - 2024 11:59 PM LABORATORY ASSISTANT Hospital Encounter [facility] [address] [place] [address] Discharge Disposition: Home or Self Care 2024 Travel 07/11/2024 Telephone [facility] - [facility]NT [address] [place] [phone] [place] Authorization 07/07/2024 8:41 AM LABORATORY ASSISTANT - 07/07/2024 11:59 PM LABORATORY ASSISTANT Hospital Encounter [facility] [address] [place] [address] Pedro Bazzi MD Discharge Disposition: Home or Self Care 07/07/2024 8:00 AM LABORATORY ASSISTANT - 07/07/2024 8:40 AM LABORATORY ASSISTANT Hospital Encounter [facility] [address] [place] [address] Pedro Bazzi MD Otolaryngology Discharge Disposition: Home or Self Care 07/07/2024 Travel 06/27/2024 Telephone [facility] - [facility]NT [address] [place] [phone] [facility] Scheduling 06/24/2024 10:15 AM LABORATORY ASSISTANT Office Visit [facility] - [facility]NT [address] [place] [phone] Pedro Bazzi MD Thyroid nodule (Primary Dx) from Last 3 Months Family History Medical History Relation Name Comments Cancer - Breast Neg Hx Social History Tobacco Use Types Packs/Day Years Used Date Smoking Tobacco: Never Smokeless Tobacco: Never Alcohol Use Standard Drinks/Week Comments Not Currently 0 (1 standard drink = 0.6 oz pur e alcohol) AUDIT-C Answer Date Recorded Q1: How often do you have a drink containing alcohol? Never 07/21/2024 Q2: How many drinks containi ng alcohol do you have on a typical day when you are drinking? Patient does not drink Q3: How often do you have si x or more drinks on one occasion? Never 07/21/2024 Sex and Gender Information Value Date Recorded Sex Assigned at Female 08/14/2020 4:20 PM CDT Gender Identity Female 08/14/2020 4:20 PM CDT Sexual Orientation Not on file Last Filed Vital Signs Vital Sign Reading Time Taken Comments Blood Pressure 138/91 08/17/2024 2:27 PM CDT Pulse 112 08/17/2024 2:27 PM CDT Temperature 36.9 C (98.4 F) 07/26/2024 8:16 PM LABORATORY ASSISTANT Respiratory Rate 16 07/27/2024 4:43 AM LABORATORY ASSISTANT Oxygen Saturation 99% 07/27/2024 4:43 AM LABORATORY ASSISTANT Inhaled Oxygen Concentration - - Weight 98 kg (216 lb) 08/17/2024 2:27 PM CDT Height 162.6 cm (5' 4 ) 08/17/2024 2:27 PM CDT Body Mass Index 37.08 08/17/2024 2:27 PM CDT Plan of Treatment Health Maintenance Due Date Last Done Comments HIV SCREENING 2003 HEPATITIS C SCREENING 07/11/2006 DTAP/TDAP/TD VACCINES (1 - Tdap) 2007 HEPATITIS B VACCINE (1 of 3 - 19+ 3-dose series) 2007 COVID-19 VACCINE ( - 2023-2 5 season) 2024 INFLUENZA VACCINE (#1) 2024 DEPRESSION SCREENING 06/01/2024 PAP SMEAR 08/11/2027 08/10/2024 ZOSTER VACCINE (1 of 2) 2038 HIB VACCINE Aged Out No longer eligi ble based on patient's age to complete this topic HPV VACCINE Aged Out No longer eligi ble based on patient's age to complete this topic MENINGOCOCCAL (Group B) VACC INE SHARED DECISION-MAKING Aged Out No longer eligibl e based on patient's age to complete this topic MENINGOCOCCAL GROUPS A/C/Y/W VACCINE Aged Out No longer eligible b ased on patient's age to complete this topic PNEUMOCOCCAL VACCINE Aged Out No long er eligible based on patient's age to complete this topic Procedures Procedure Name Priority Date/Time Associated Diagnosis Comments GLUCOSE - POINT OF CARE Routine 07/27/2024 3:06 AM LABORATORY ASSISTANT TSH REFLEX FREE T4 STAT 07/26/2024 8: 41 PM LABORATORY ASSISTANT HCG BETA BLOOD QUANTITATIVE STAT 07/26/2024 8:41 PM LABORATORY ASSISTANT COMPREHENSIVE METABOLIC PANEL STAT 07/26/2024 8:41 PM LABORATORY ASSISTANT CBC W AUTO DIFFERENTIAL STAT 07/26/2024 8:41 PM LABORATORY ASSISTANT PATHOLOGY TISSUE Routine 07/21/2024 8:51 AM LABORATORY ASSISTANT Thyroid nodule ENDOTRACHEAL TUBE NOTE Routine 07/21/2024 7:56 AM LABORATORY ASSISTANT DC THYROIDECTOMY,MALIG, LTD NECK SURG 07/21/2024 6:58 AM LABORATORY ASSISTANT Thyroid nodule Special Needs RLN - NIMs 07/14 BC TYPE + SCREEN PANEL STAT 07/21/2024 6 :08 AM LABORATORY ASSISTANT Pre-op evaluation HCG URINE QUALITATIVE - POCT (IP) INTERFACED Routine 07/21/2024 5:53 AM LABORATORY ASSISTANT HCG URINE QUAL POCT NOTIFICATION STAT 07/21/2024 5:45 AM LABORATORY ASSISTANT Pre-op evaluation TYPE + SCREEN PANEL Routine 2024 9 :22 AM LABORATORY ASSISTANT Pre-op evaluation DC LARYNGOSCOPY,FLEX FIBER,DIAGNOSTIC Routine 06/24/2024 11:25 AM LABORATORY ASSISTANT Thyroid nodule from Last 3 Months Results * GLUCOSE - POINT OF CARE (07/27/2024 3:06 AM LABORATORY ASSISTANT) Glucose WB/POC 98 70 - 99 mg/dL 07/27/2024 3:11 AM [facility] Specimen Type Cap Fingerstick 2024 3:11 AM [facility] Blood BLOOD SPECIMEN / Unknown 07/27/2024 3:06 AM LABORATORY ASSISTANT 07/27/2024 3:11 AM LABORATORY ASSISTANT Provider Unknown LAB - POINT OF CARE ORDERABLES Performing Organization Address City/[facility]/ZIP Co de Phone Number [address] [address], [facility] [phone] * TSH REFLEX FREE T4 (07/26/2024 8:41 PM LABORATORY ASSISTANT) TSH 0.790 0.350 - 4.940 uIU/mL 07/26/2024 9:46 PM [facility] Blood BLOOD SPECIMEN / Unknown Venipuncture / Unknown 07/26/2024 8:41 PM LABORATORY ASSISTANT 07/26/2024 8:55 PM LABORATORY ASSISTANT Lottie Martinez SEAT TRIMMER-BUSINESS ACCOUNT LEADER LAB - CHEMIS TRY ORDERABLES [address] [address], [facility] [phone] * (ABNORMAL) CBC W AUTO DIFFERENTIAL (07/26/2024 8:41 PM LABORATORY ASSISTANT) WBC 10.3 4.0 - 10.7 x10E9/L 07/26/2024 9:04 PM [facility] RBC Count 5.31(H) 3.90 - 5.20 x10E12/L 07/26/2024 9:04 PM [facility] Hemoglobin 15.0 11.9 - 15.8 g/dL 07/26/2024 9:04 PM [facility] Hematocrit 43.9 34.8 - 46.1 % 07/26/2024 9:04 PM [facility] MCV 82.7 80.0 - 98.0 fL 07/26/2024 9:04 PM [facility] MCH 28.2 26.7 - 33.6 pg 07/26/2024 9:04 PM [facility] MCHC 34.2 31.7 - 36.3 g/dL 07/26/2024 9:04 PM [facility] RDW-CV 12.6 11.3 - 14.8 % 07/26/2024 9:04 PM [facility] Platelet Count 391 150 - 420 x10E9/L 07/26/2024 9:04 PM [facility] MPV 10.7 7.8 - 11.4 fL 07/26/2024 9:04 PM [facility] Neutrophil % 56.3 41.0 - 74.0 % 07/26/2024 9:04 PM [facility] Lymphocyte % 34.1 17.0 - 47.0 % 07/26/2024 9:04 PM [facility] Monocyte % 6.7 3.0 - 11.0 % 07/26/2024 9:04 PM [facility] Eosinophil % 2.2 0.0 - 7.0 % 07/26/2024 9:04 PM [facility] Basophil % 0.5 0.0 - 1.6 % 07/26/2024 9:04 PM [facility] Immature Granulocytes % 0.2 0.0 - 1.0 % 07/26/2024 9:04 PM [facility] Neutrophil Absolute 5.81 1.60 - 7.50 x10E9/L 07/26/2024 9:04 PM [facility] Lymphocyte Absolute 3.52 1.00 - 4.40 x10E9/L 07/26/2024 9:04 PM [facility] Monocyte Absolute 0.69 0.15 - 1.00 x10E9/L 07/26/2024 9:04 PM [facility] Eosinophil Absolute 0.23 0.00 - 0.60 x10E9/L 07/26/2024 9:04 PM [facility] Basophil Absolute 0.05 0.00 - 0.13 x10E9/L 07/26/2024 9:04 PM [facility] Blood BLOOD SPECIMEN / Unknown Venipuncture / Unknown 07/26/2024 8:41 PM LABORATORY ASSISTANT 07/26/2024 8:55 PM LABORATORY ASSISTANT Lottie Martinez SEAT TRIMMER-BUSINESS ACCOUNT LEADER LAB - HEMATO LOGY ORDERABLES [facility] [address] [place] [address], [facility] [phone] * (ABNORMAL) COMPREHENSIVE METABOLIC PANEL (07/26/2024 8:41 PM LABORATORY ASSISTANT) BUN 8 7 - 26 mg/dL 07/26/2024 9:29 PM [facility] Creatinine 0.96 0.56 - 0.96 mg/dL 07/26/2024 9:29 PM [facility] Sodium 144 136 - 145 mmol/L 07/26/2024 9:29 PM [facility] Potassium 3.8 3.5 - 4.5 mmol/L 07/26/2024 9:29 PM [facility] Chloride 108(H) 98 - 107 mmol/L 07/26/2024 9:29 PM [facility] CO2 24 22 - 29 mmol/L 07/26/2024 9:29 PM [facility] Glucose 66(L) 70 - 99 mg/dL 07/26/2024 9:29 PM [facility] Calcium 9.7 8.4 - 10.2 mg/dL 07/26/2024 9:29 PM [facility] Protein Total 8.6(H) 6.0 - 8.3 g/dL 07/26/2024 9:29 PM [facility] Albumin 4.3 3.4 - 5.0 g/dL 07/26/2024 9:29 PM [facility] Bilirubin Total 0.3 0.2 - 1.2 mg/dL 07/26/2024 9:29 PM [facility] Alkaline Phosphatase 87 40 - 150 U/L 07/26/2024 9:29 PM [facility] ALT 22 5 - 55 U/L 07/26/2024 9:29 PM [facility] AST 17 5 - 34 U/L 07/26/2024 9:29 PM [facility] Anion Gap 12 6 - 16 07/26/2024 9:29 PM [facility] BUN/Creatinine Ratio 8 7 - 23 07/26/2024 9:29 PM [facility] Osmolality Calculated 295 275 - 295 mOsm/kg 07/26/2024 9:29 PM [facility] Albumin/Globulin Ratio 1.0(L) 1.1 - 2.3 07/26/2024 9:29 PM [facility] eGFR by CKD-EPI 79(L) >=90 mL/min/1.7 3 m2 07/26/2024 9:29 PM [facility] Blood BLOOD SPECIMEN / Unknown Venipuncture / Unknown 07/26/2024 8:41 PM LABORATORY ASSISTANT 07/26/2024 8:55 PM LABORATORY ASSISTANT Lottie Martinez SEAT [email or web address] LAB - CHEMIS TRY ORDERABLES Performing Organization Address [facility] Co de Phone Number [address] [address], [facility] [phone] * HCG BETA BLOOD QUANTITATIVE (07/26/2024 8:41 PM LABORATORY ASSISTANT) Beta-hCG Total Quantitative <3 mIU/mL 07/26/2024 9:47 PM [facility] Comment: HCG Numeric Result Interpretation: Non- Females: < 5 mIU/mL Post-Menopausal Females: < 7 mIU/mL This assay is cleared for use in the early detection of only. It is not approved for any other uses such as tumor marker screening, tumor marker monitoring, etc. and should not be used for any other purposes. Blood BLOOD SPECIMEN / Unknown Venipuncture / Unknown 07/26/2024 8:41 PM LABORATORY ASSISTANT 07/26/2024 8:55 PM LABORATORY ASSISTANT Lottie Martinez SEAT [email or web address] LAB - CHEMIS TRY ORDERABLES Performing Organization Address [facility]/ZIP Co de Phone Number [address] [address], [place] [phone] * PATHOLOGY TISSUE (07/21/2024 8:51 AM LABORATORY ASSISTANT) Case Report Surgical Pathology Report Case: [id number] Authorizing Provider: Pedro Bazzi MD Collected: 07/21/2024 08:51 AM Ordering Location: [facility] Received: 07/21/2024 11:01 AM Pathologist: Liliam Roberts MD Specimen: Thyroid, Left Lobe, left thyroid lobe stitched superior 07/27/2024 3:30 PM [facility] Final Diagnosis Thyroid, left, lobectomy: - Benign thyroid with follicular nodular hyperplasia, see comment 07/27/2024 3:30 PM [facility] Microscopic Description and Comment The specimen shows follicular nodular hyperplasia with a 4.8 cm dominant nodule. Previous biopsy site changes are noted. 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 No features of papillary thyroid carcinoma are noted. No marked atypia or carcinoma is seen. 07/27/2024 3:30 PM [facility] Clinical History The patient is a 34 year-old female with bilateral thyroid nodules. FNA performed on the left thyroid nodule, which showed suspicious for papillary thyroid carcinoma. 07/27/2024 3:30 PM [facility] Gross Description The requisition and specimen(s) are identified with the patient's name Yadira Hahn . Received in formalin, specimen A , consists of a 6.0 x 3.6 x 3.2 cm 29.5 g left thyroid lobe with a stitch at superior. The capsule is intact and inked black and the isthmus margin is inked green. Sectioning shows a 4.8 x 3.3 x 2.7 cm hemorrhagic, variegated bishop-pink to bishop-brown, nodule. The nodule spans from superior to inferior pole and is less than 0.1 cm to the isthmus margin. Plan Coordinator sections are submitted as follows: A1 nodule to isthmus margin, perpendicular A2-A6 nodule telemarketing sales representative to include papillary portion in A3. Additional sections (07/25/2024): A7-A22 remainder of nodule. LT 07/27/2024 3:30 PM [facility] Pathologist Location at [facility] 07/27/2024 3:30 PM [facility] Disclaimer The performance characteristics of all immunohistochemical and indirect immunofluorescence stains (if any) cited in this report were determined by the Histopathology Laboratory of [facility]. Some of these tests were developed by our own laboratory and have not been cleared or approved by the US Food and Drug Administration. The FDA does not require this test to go through premarket FDA review. These tests are used for clinical purposes. They should not be regarded as investigational or for research. This laboratory is certified under the Clinical Laboratory Improvement Amendments (CLIA) as qualified to perform high complexity clinical laboratory testing. This case has been personally reviewed and interpreted by the attending (teaching) pathologist. 07/27/2024 3:30 PM LABORATORY ASSISTANT [facility] Embedded Images 07/27/2024 3:30 PM LABORATORY ASSISTANT [facility] Biopsy, Excision (Thyroid, Left Lobe) 07/21/2024 8:51 AM LABORATORY ASSISTANT 07/21/2024 11:01 AM LABORATORY ASSISTANT Comment:Pre-op diagnosis: Thyroid nodule Pedro Bazzi MD LAB - PATHOLOGY/CYTO LOGY ORDERABLES Performing Organization Address City/State/[facility] Co de Phone Number [facility] [address] [phone] * ETT LINE PERFORMABLE (07/21/2024 7:56 AM LABORATORY ASSISTANT) Narrative Karla Mcguire CAA - 07/21/2024 7:56 AM LABORATORY ASSISTANT Karla Mcguire Anes Asst 07/21/2024 7:57 AM Endotracheal Tube Placement: Patient Location: OR. Intubation Event Date/Time: 07/21/2024 7:32 AM Procedure: intubation (86380) Procedure Section: Sedation: IV sedation. Indications for Airway Management: airway protection Induction: standard IV Patient Position: supine Mask Ventilation: easy. Blade Type: Video Blade Size: 3 Laryngoscopy View: grade 1 (full cords) Tube: nerve integrity monitoring tube Placement: oral Tube type: cuff - inflated Tube Size (MM): 7 Cuff Inflated With: air Number of Attempts: 1. Placement Verified By: direct visualization, bilateral breath sounds, chest auscultation and CO2 monitor Tube secured with: adhesive tape and ETT adkins. Dentition unchanged? Yes Difficult Airway? No. Procedure Start Time: 07/21/2024 7:32 AM. Staff Section Anesthesia Provider: Karla Mcguire Anes Asst, Performed the procedure Provider #1: Chantel Berrios MD. Chantel Berrios MD GENERAL ANESTHESIA O RDERABLES * TYPE + SCREEN PANEL (07/21/2024 6:08 AM LABORATORY ASSISTANT) Only the most recent of2 resultswithin the time period is included. Antibody Screen NEG 7:11 AM LABORATORY ASSISTANT [facility] ABO Rh O POS 07/21/2024 7:11 AM LABORATORY ASSISTANT [facility] Blood Bank BLOOD SPECIMEN / Unknown Venipuncture / Unknown 07/21/2024 6:08 AM LABORATORY ASSISTANT 07/21/2024 6:25 AM LABORATORY ASSISTANT Pedro Bazzi MD LAB - BLOOD BANK ORD ERABLES Performing Organization Address City/[facility]/ZIP Co de Phone Number [facility] [address] [place] [address], [place] [phone] * HCG URINE QUALITATIVE - POCT (IP) INTERFACED (07/21/2024 5:53 AM LABORATORY ASSISTANT) Pathologist [facility] HCG Qual Urine Negative Negative 07/21/2024 5:59 AM LABORATORY ASSISTANT [facility] Urine URINE / Unknown 07/21/2024 5 :53 AM LABORATORY ASSISTANT 07/21/2024 5:59 AM LABORATORY ASSISTANT Pedro Bazzi MD LAB - POINT OF CARE ORDERABLES Performing Organization Address [facility]/ZIP Co de Phone Number [address] [address], [place] [phone] * HCG URINE QUAL POCT NOTIFICATION (07/21/2024 5:45 AM LABORATORY ASSISTANT) Pathologist [facility] Comment Notification Label Only - See Separate Report 07/21/2024 7:00 AM LABORATORY ASSISTANT [facility] Urine URINE / Unknown 07/21/2024 5 :45 AM LABORATORY ASSISTANT 07/21/2024 5:45 AM LABORATORY ASSISTANT Pedro Bazzi MD LAB - URINALYSIS ORD ERABLES Performing Organization Address City/[facility]/ZIP Co de Phone Number [address] [address] [phone] * DC LARYNGOSCOPY,FLEX FIBER,DIAGNOSTIC (06/24/2024 11:25 AM LABORATORY ASSISTANT) Narrative Codi Avendano MD - 06/24/2024 11:25 AM LABORATORY ASSISTANT Codi Avendano MD 06/24/2024 12:21 PM PROCEDURE NOTE Endoscopy Type: Laryngoscopy without stroboscopy Endoscope: Flexible 4mm Scope Anesthesia: Lidocaine 2% and Neosynephrine 1/2% (nasal) Procedure Details: The patient was sitting upright in a chair with the head in a slightly anterior sniffing position. The topical anesthesia was administered and then adequate time was allowed for an anesthetic effect. The endoscope was passed through the nasal cavity with the tongue retracted anteriorly. The tip of the endoscope was positioned in the oropharynx which allowed a complete view of the base of tongue, vallecula, pyriform recesses, epiglottis, bilateral true and false vocal folds, the interarytenoid and post cricoid region, and the immediate subglottis. Findings: Bilateral nasal cavities patent. Septum not significantly deviated. No purulence, polyps, or lesions noted in bilateral nasal cavities. Palate elevates symmetrically. Nasopharynx, oropharynx, hypopharynx appear normal without masses or lesions. Circumferential narrowing secondary to redundant tissue. Movement of bilateral TVCs full and symmetric. Condition: Stable. Patient tolerated procedure well. Complications: None Dr. Bazzi was present for the entire procedure Pedro Bazzi MD PROCEDURE/MINOR SURG ICAL ORDERABLES from Last 3 Months Advance Directives * Full Code (Latest Code Status on File) Date Activated Date Inactivated Comments 07/21/2024 4:32 PM 07/22/2024 1:05 PM Care Teams Cultural Centre Manager Relationship Specialty Start Date End Date Nate Kerr MD PCP - General 07/26/19
--- OUTSIDE RECORDS SUMMARY | 2024-08-25 14:51 | XMS_ITS | Clinical Summary ---
Author Organization [facility] HealthCare Care Team Providers Care Retail Parts Professional Name Role Phone Nate Kerr MD Primary Care Provider Allergies No known active allergies Medications No known medications Active Problems Problem Noted Date Diagnosed Date Multinodular goiter 12/08/2022 Assessment & Plan (12/08/2022 3:57 PM CDT): Reviewed patient recent thyroid ultrasound report Multinodular goiter with bilateral dominant thyroid nodule. Bilateral thyroid nodule FNA biopsy done recently at [facility] Cytology results pending No compressive symptoms Last TSH 09/2022 slightly low Plan to repeat thyroid function test in 2-3 months Will try to obtain patient recent bilateral thyroid nodule FNA results. If cytology results comes back benign advised patient to follow-up in 6 months Abnormal thyroid function test 12/08/2022 Assessment & Plan (12/08/2022 3:57 PM CDT): Slightly low TSH 09/2022 Under repeat thyroid function test in 2-3 months Class 2 obesity due to exces s calories without serious comorbidity with body mass index (BMI) of 36.0 to 36.9 in adult 12/08/2022 Assessment & Plan (12/08/2022 3:58 PM CDT): Counseled on diet and exercise Advised to work on portion, healthy carb controlled diet Stop added sugars in diet Cutback on processed food Increase physical activity and work on exercising at least 5 times weekly Include resistance training Work on stress management and good sleep quality Encounters Date Type Department Care Team Description 07/27/[address] [address] Winnie Stark RN 07/26/2024 7:18 PM CERTIFIED MEDICINE AIDE - 07/26/2024 7:34 PM CERTIFIED MEDICINE AIDE Emergency [address] [address] Discharge Disposition: Left without being seen 06/15/2024 Telephone [facility] [address] [facility] Advanced Medicine [address]th [place] [address] [place] [address] Jenny Gómez MS from Last 3 Months Medical History Medical History Date Comments PCOS (polycystic ovarian syndrome) Multinodular goiter (nontoxic) Obesity (BMI 30-39.9) Hirsutism Family History Medical History Relation Name Comments Thyroid cancer Neg Hx Social History Tobacco Use Types Packs/Day Years Used Date Smoking Tobacco: Never Passive Smoke Exposure: Never Smokeless Tobacco: Never Tobacco Cessation:Counseling Given: Not Answered AUDIT-C Answer Date Recorded Q1: How often do you have a drink containing alc ohol? Never 12/08/2022 Average Number of Drinks Not on file 023 Q3: How often do you have si x or more drinks on one occasion? Never 12/08/2022 Comments Unknown Sex and Gender Information Value Date Recorded Sex Assigned at Not on file Legal Sex Female 10:49 AM CERTIFIED MEDICINE AIDE Gender Identity Not on file Sexual Orientation Not on file Obstetrics History Last Filed Vital Signs Vital Sign Reading Time Taken Comments Blood Pressure 163/111 07/26/2024 7:22 PM CERTIFIED MEDICINE AIDE Pulse 102 07/26/2024 7:22 PM CERTIFIED MEDICINE AIDE Temperature 37.3 C (99.1 F) 07/26/2024 7:22 PM CERTIFIED MEDICINE AIDE Respiratory Rate 18 07/26/2024 7:22 PM CERTIFIED MEDICINE AIDE Oxygen Saturation 100% 07/26/2024 7:22 PM CERTIFIED MEDICINE AIDE Inhaled Oxygen Concentration - - Weight 96.3 kg (212 lb 4.8 oz) 12/08/2022 2:38 P M CDT Height 162.6 cm (5' 4 ) 12/08/2022 2:38 PM CDT Body Mass Index 36.44 12/08/2022 2:38 PM CDT Plan of Treatment Health Maintenance Due Date Last Done Comments Cervical Cancer Screening 1988 Depression Screening 1988 Hepatitis C Screening 1988 DTaP/Tdap/Td Vaccine (1 - Tdap) 1999 Varicella Vaccines (1 of 2 - 13+ 2-dose series) 2001 Hepatitis B Screening 2006 Regular Well Visit/Exam 18-64 2006 Influenza Vaccine (#1) 2024 HPV Vaccines Aged Out No longer eligi ble based on patient's age to complete this topic Pneumococcal vaccine <65 Aged Out No longer eligible based on patient's age to complete this topic Insurance [facility] NIMESH [id number] [facility] [id number] Care Teams Retail Parts Professional Relationship Specialty Start Date End Date Nate Kerr MD [address] [facility] [place] [address] PCP - General Family Medicine 11/18/22
--- OUTSIDE RECORDS SUMMARY | 2024-08-25 14:51 | XMS_ITS | Patient Health Record ---
Author Organization [facility] amrit Address [address] [facility] [address] [place] [address] Care Team Providers Care Project Manager Process Development Name Role Phone Cirilo BURK, Nate Primary Care Provider Angeles Combs Unavailable [phone] Allergies No Known Allergies Reason For Referral No Information Medications Medication SIG (Take, Route, Frequency, Duration) Notes Start Date End Date Status Nextstellis 3 mg- 14.2 mg (28) take 1 tablet by oral route once daily oral 1 *Pick strength-form from [employer] for eRX* Active Plan Of Treatment No Information Insurance Providers Payer Name Payer Address Payer Phone Subscriber Number Group Number Insured Name Patient Relationship to Insured Coverage Start Date Coverage End Date Claims Processing [place] [id number] Yadira Hahn Self - patient is the insured [place] [address] [place] [address] [phone] [id number] Yadira Hahn Self - patient is the insured [facility] [employer] [address] [address] [place] [address] [phone] [id number] Yadira Hahn Self - patient is the insured [employer] [address] [address] [place] [address] [id number] Yadira Hahn Self - patient is the insured [employer] [address] [address] [place] [address] [phone] [id number] Yadira Hahn Self - patient is the insured Medical (General) History Surgical History Surgery Date(Month/Year) Breast reduction; 2022-06-23
--- OUTSIDE RECORDS SUMMARY | 2024-08-25 14:51 | XMS_ITS | Referral Summary ---
Author Organization [facility] HealthCare Care Team Providers Care Publication Designer Name Role Phone Nate Kerr MD Primary Care Provider Encounters Date Type Department Care Team Description 07/27/[address] [address] Winnie Stark RN 07/26/2024 7:18 PM HAT SIZER - 07/26/2024 7:34 PM HAT SIZER Emergency [address] [address] Discharge Disposition: Left without being seen 06/15/2024 Telephone [facility] Advanced [facility] ([facility] - [facility] ENT [address] [facility] [address] [place] [address] [place] [address] Jenny Gómez, from Last 3 Months Allergies No known active allergies Medications No known medications Active Problems Problem Noted Date Diagnosed Date Multinodular goiter 12/08/2022 Assessment & Plan (12/08/2022 3:57 PM CDT): Reviewed patient recent thyroid ultrasound report Multinodular goiter with bilateral dominant thyroid nodule. Bilateral thyroid nodule FNA biopsy done recently at [facility] Cytology results pending No compressive symptoms Last [...] on stress management and good sleep quality Social History Tobacco Use Types Packs/Day Years [...] on file Legal Sex Female 10:49 AM HAT SIZER Gender Identity Not on file Sexual Orientation Not on file Last Filed Vital Signs Vital Sign Reading Time Taken Comments Blood Pressure 163/111 07/26/2024 7:22 PM HAT SIZER Pulse 102 07/26/2024 7:22 PM HAT SIZER Temperature 37.3 C (99.1 F) 07/26/2024 7:22 PM HAT SIZER Respiratory Rate 18 07/26/2024 7:22 PM HAT SIZER Oxygen Saturation 100% 07/26/2024 7:22 PM HAT SIZER Inhaled Oxygen Concentration - - Weight 96.3 kg (212 lb 4.8 oz) 12/08/2022 2:38 P M CDT Height 162.6 cm (5' 4 ) 12/08/2022 2:38 PM CDT Body Mass Index 36.44 12/08/2022 2:38 PM CDT Plan of Treatment Not on file Insurance [facility] NIMESH [id number] [facility] [id number] [place]IMESH [id number] Care Teams Publication Designer Relationship Specialty Start Date End Date Nate Kerr MD [address] [facility] [address] PCP - General Family Medicine 11/18/22
--- OUTSIDE RECORDS SUMMARY | 2024-08-25 14:51 | XMS_ITS | Encounter Summary ---
Author Organization [facility] Address [address] [place] [address] Care Team Providers Care Clothes Shaker Name Role Phone Nate Kerr MD Primary Care Provider [phone] Encounter Details Date Type Department Care Team (Late st Contact Info) Description 10/25/2020 Telephone [facility] [address] [place] [address] Sussy Ybarra MD [address] [place] [address] Social History Tobacco Use Types Packs/Day Years Used Date Smoking Tobacco: Never Smokeless Tobacco: Never Sex and Gender Information Value Date Recorded Sex Assigned at Female 08/14/2020 4:20 PM CDT Gender Identity Female 08/14/2020 4:20 PM CDT Sexual Orientation Not on file documented as of this encounter Miscellaneous Notes * Telephone Encounter - Eva Martinez - 10/25/2020 12:30 PM CDT Per fax back from [facility], [facility] [address] is approved, auth # [id number], good 10/22/20-01/20/21. documented in this encounter Plan of Treatment Not on file documented as of this encounter Visit Diagnoses Not on filedocumented in this encounter Care Teams Clothes Shaker Relationship Specialty Start Date End Date Nate Kerr MD PCP - General 07/26/19 documented as of this encounter
--- OUTSIDE RECORDS SUMMARY | 2024-08-25 14:51 | XMS_ITS ---
Author Organization [facility] amrit Address [address] [facility] [address], [place] [address] Care Team Providers Care Factory Engineer Name Role Phone Nate Kerr MD Primary Care Provider Unavailabl Angeles Knutson Unavailable [phone] zzzzMigration, zzzzProvider Unavailable Unav ailable REASON FOR VISIT EMR-Garcia Encounters Encounter Location Date Provider Diagnosis [facility] [address] [facility] [address] [place] [address] 03/21/2023 zzzzProvider zzzzMigration Plan Of Treatment Medication Medication Name Sig Start Date Stop Date Notes metFORMIN HCl 500 MG take 1 tablet (500 mg) by oral route 2 times per day with morning and evening meals Oral 2 Spironolactone - take 1 tablet daily oral *Pick strength-form from [employer] for eRX* Progress Notes * Jaren HAHNMaribellB:[birth year] (34 yo F)Acc No.[id number]:03/21/2023 Patient: Yadira ALANIS :1990 A ge:32 Y S ex:Female Phone: Address:[address] [place] [address], [phone] * Refills Stop metFORMIN HCl Tablet, 500 MG, Oral, 0, take 1 tablet (500 mg) by oral route 2 times per day with morning and evening meals, 2 Stop Spironolactone, -, oral, 0, take 1 tablet daily Subjective: * Chief Complaints: * E MR-Garcia * Medical History: * Surgical History: * Hospitalization/Major Diagno stic Procedure: * Medications: Objective: * Vitals: * Physical Examination: Assessment: Plan: * Treatment: * Procedure Codes: * true * Date: Generated for Adelaide verdin/Lizette/Piedad on: 0 08/25/2024 02:50 PM CDT
[2024-08-25 14:59] LABS: Thyroid Stimulating Hormone 0.484 uIU/mL (0.465-4.680)
[2024-08-25 17:37] LABS: Vitamin D 25 Hydroxy 14.9 ng/mL
[2024-08-29 13:19] LABS: Ionized Calcium 5.3 mg/dL (4.7-5.5)
== END 2024-08-25 13:30 | disposition home or self-care (01) ==
PROVIDERS: PCP Emergency Medicine; Visit Provider Internal Medicine
DX: E04.2 Nontoxic multinodular goiter (principal); R79.89 Other specified abnormal findings of blood chemistry; Z90.09 Acquired absence of other part of head and neck
CPT/HCPCS: 36415; 80053; 82306; 82330; 82607; 83540; 83550; 84439; 84443; 85027

== ENCOUNTER 2024-11-25 13:53 | Outpatient (CLI) | payer OTHER, SELFPAY ==
[2024-11-25 15:11] LABS: Thyroid Stimulating Hormone 0.463 uIU/mL (0.465-4.680)
[2024-11-25 15:51] LABS: Free T4 Free Thyroxine 1.05 ng/dL (0.78-2.19)
== END 2024-11-25 13:54 | disposition home or self-care (01) ==
PROVIDERS: PCP Emergency Medicine; Visit Provider Internal Medicine
DX: E04.2 Nontoxic multinodular goiter (principal)
CPT/HCPCS: 36415; 84439; 84443